=== PATIENT | male | born 1980 | race African-American/Black ===

== ENCOUNTER 2022-12-20 11:52 | Inpatient (IN) | payer OTHER, SELFPAY ==
--- NOTE | ~2022-12-20 | CT_ITS ---
EXAMINATION: CT CHEST, ABDOMEN AND PELVIS WITHOUT CONTRAST CLINICAL INFORMATION: Leukocytosis and pneumonia with left lower quadrant pain and question of diverticulitis/colitis COMPARISON: CT abdomen pelvis 01/31/2019 TECHNIQUE: Multidetector volumetric imaging was performed from the thoracic inlet through the pubic symphysis without IV contrast. Sagittal and coronal reformatted images were obtained on the technologist's workstation. This CT examination was performed using dose optimization techniques as appropriate, variously including the following: *Automated exposure control *Adjustment of mA and/or kV according to patient size (this includes techniques or standardized protocols for targeted exams where dose is matched to indication/reason for exam; i.e. extremities or head) *Use of iterative reconstruction technique DLP: 299 mGy-cm for the chest and 532 mGy-cm for the abdomen and pelvis FINDINGS: CHEST: Lung: Dense left lower lobe consolidation is present. Some mild atelectasis is present at the right lung base. Mediastinum: The mediastinum is normal. The central vascular structures are unremarkable. No hilar or mediastinal lymphadenopathy. Minimal coronary artery calcium is present. Pericardium/Pleura: No significant effusion. No pleural mass or thickening. Chest Wall/Axilla: Unremarkable ABDOMEN/PELVIS: Peritoneal Space: No significant free air or free fluid identified. Liver, Gallbladder, Biliary Tree: The liver is normal in size and shape but with decreased attenuation compared with the spleen consistent with hepatic steatosis. No focal hepatic lesion or biliary ductal dilatation is present. The gallbladder is contracted but otherwise unremarkable with no evidence of radiopaque gallstones, gallbladder wall thickening, or obvious pericholecystic inflammatory changes. Pancreas: Unremarkable Spleen: Unremarkable Adrenal Glands: Unremarkable Kidneys and Ureters: The kidneys are normal in size, shape, and attenuation. There is a punctate 2 mm calcification seen in the right lower pole. No hydronephrosis, hydroureter, or additional calculi seen. No perinephric stranding. Bladder: Unremarkable Gastrointestinal Tract: The small and large bowel are unremarkable. The appendix is unremarkable. Abdominal Wall: No significant hernia is appreciated. Lymph Nodes: No lymphadenopathy. Vascular: Calcific atherosclerotic plaque present in the aorta and iliac vessels without aneurysm. The IVC appears unremarkable. PELVIC VISCERA: Unremarkable OSSEUS STRUCTURES: Mild degenerative changes are noted in the spine. No bony destructive lesions are seen. CT/CT abdomen pelvis wo IV con IMPRESSION: 1. Dense left lower lobe consolidation consistent with pneumonia. 2. Hepatic steatosis. 3. Punctate nonobstructing right renal calculus. 4. No evidence of diverticulitis or colitis. 5. Other incidental findings as described above. Fleischner guidelines were followed.
[2022-12-20 12:03] VITALS: BP 149/87; PULSE 130; RESP 17; TEMP 37.6; O2SAT 94; BMI 30.4
--- NOTE | 2022-12-20 12:04 | ED_ITS ---
HPI - General Adult General Chief complaint: Abdominal Pain Stated complaint: covid symptons Time Seen by Provider: 12/20/22 12:04 Source: patient Mode of arrival: ambulatory Limitations: no limitations History of Present Illness HPI narrative: Patient was has a complaint of diffuse abdominal pain nausea vomiting diarrhea for last 4 days with fever and chills multiple times of vomiting and diarrhea get worse on taking any p.o. fluids . Abdominal pain gets worse when patient ambulates and eat pain got worse today on arrival patient had temperature of 103.3 degrees with tachycardia no upper respiratory symptoms no other family member sick no recent travel no history of similar pain and symptoms before patient also have dry cough for last few days Related Data Allergies Allergy/AdvReac Type Severity Reaction Status Date / Time No Known Allergies Allergy Verified 12/20/22 12:02 [No Known Allergies*] Review of Systems 2 Review of Systems: Yes all other systems are reviewed and are negative [facility] Social History Social History Alcohol intake: current Alcohol intake frequency: holidays/special occasions only Patient Tobacco Use Status: Never used Tobacco Smoked in Last 30 Days: Yes Use of substances other than those prescribed or required for medical reasons: Yes Substance Use Type: Marijuana Advance Directives: No Advance Directives Information Provided: Yes Nutrition Risks: No Nutritional Risk Physical Exam ED Vital Signs: Vital Signs - 24 hr 12/20/22 12:03 12/20/22 16:40 12/20/22 17:30 Temperature 99.7 F 103.3 F H 100.6 F H Pulse Rate 130 H 123 H 128 H Respiratory Rate 17 18 24 H Blood Pressure 149/87 H 165/98 H 156/93 H Pulse Oximetry 94 96 95 Oxygen Delivery Method Room Air Room Air 12/20/22 18:18 12/20/22 18:56 12/20/22 19:33 Temperature 100.3 F 99.7 F 98.7 F Pulse Rate 108 H 103 H 101 H Respiratory Rate 21 H 18 25 H Blood Pressure 153/96 H 129/86 Pulse Oximetry 96 95 97 Oxygen Delivery Method Room Air Room Air Room Air BMI result Body Mass Index 30.4 Appearance: Alert. Oriented X3. Looks sick Eyes: PERRLA, No Nystagmus ENT: Pharynx normal. Oral Mucosa moist Neck: Normal inspection. Neck supple. CVS: Normal heart rate and rhythm. Pulses normal. Respiratory: No respiratory distress. Equal air entry bilateral, no wheezing/rales/rhonchi pleuritic pain on the left side with few rales at left base Abdomen: Soft diffuse lower abdominal tenderness both lower quadrants L>R with guarding no rebound and Bowel sounds are present, no mass palpable, no CVA tenderness Skin: Skin warm and dry. Normal skin color. Normal skin turgor. Extremities: No lower extremity edema. No calf tenderness Neuro: Oriented X 3. No motor deficit. Course Course Course Narrative: This is an RME: Additional HPI, ROS, PE not included below will be deferred to primary provider. 42 YO M presents w/ n/v/d, abd pain and body aches and pains X3 days. No sick contacts Plan- viral test Medications Administered Generic Name Dose Route Start Last Admin Trade Name Freq PRN Reason Stop Dose Admin Ceftriaxone Sodium 1 gm/ 50 mls @ 100 mls/hr 12/20/22 22:00 12/20/22 22:21 Sodium Chloride IV Infused Q24H KOBY Infusion Azithromycin 500 mg/ Sodium 250 mls @ 125 mls/hr 12/20/22 21:00 12/21/22 00:21 Chloride IV Infused Q24H KOBY Infusion Discontinued Medications Generic Name Dose Route Start Last Admin Trade Name Freq PRN Reason Stop Dose Admin Acetaminophen 975 mg 12/20/22 16:46 12/20/22 16:50 Acetaminophen 325 Mg Tablet PO 12/20/22 16:47 975 mg ONCE ONE Administration Piperacillin Sod/Tazobactam 50 mls @ 100 mls/hr 12/20/22 17:13 12/20/22 18:07 Sod 3.375 gm/ Sodium Chloride IV 12/20/22 17:42 Infused ONCE ONE Infusion Sodium Chloride 2,500 mls @ 2,500 mls/hr 12/20/22 17:16 12/20/22 18:48 Ns IV 12/20/22 18:15 Infused .Q1H STA Infusion Potassium Chloride 10 meq in 100 mls @ 100 mls/hr 12/20/22 20:30 12/21/22 00:21 Potassium Chloride/H20 IV 12/21/22 00:29 100 mls/hr Q1H KOBY Administration Ondansetron HCl 4 mg 12/20/22 17:13 12/20/22 17:36 Ondansetron Hcl 4 Mg/2 Ml Vial IVPUSH 12/20/22 17:14 4 mg ONCE ONE Administration Medical Decision Making Medical Decision Making [facility] Narrative: Patient with nonspecific lower abdominal pain with nausea vomiting diarrhea CT scan negative for any acute abdominal pathology but showed left lower lobe consolidation patient does have a cough with leukocytosis will admit patient for community-acquired pneumonia with GI symptoms patient tachycardic with leukocytosis meeting the criteria for sepsis but not septic shock received IV fluids and antibiotic in the ER Differential Diagnosis Differential Diagnoses: The differential diagnosis associated with the presentation includes Diverticulitis/colitis/appendicitis/pneumonia/URI Consult Healthcare Provider Management of the patient was discussed with: Hospitalist Lab Data [facility] Lab Attestation statement: I reviewed the patient's lab results. 12/20/22 16:55 12/20/22 16:55 Labs: Lab Results 12/20/22 12/20/22 12/20/22 Range/Units 13:09 16:55 17:23 WBC 16.4 H (4.8-10.8) X10*3/uL RBC 5.01 (4.60-5.80) X10*6/uL Hgb 14.7 (14.0-18.0) g/dl Hct 43.0 (42.0-52.0) % MCV 85.8 (80.0-98.0) fL MCH 29.3 (27.0-33.0) pg MCHC 34.2 (31.0-36.0) g/dl RDW 13.1 (11.0-16.0) % Plt Count 95 L (160-400) X10*3/uL MPV 11.8 (9.4-12.4) fL Immature Gran % (Auto) Cancelled Neut % (Auto) Cancelled Lymph % (Auto) Cancelled [place] % (Auto) Cancelled Eos % (Auto) Cancelled Baso % (Auto) Cancelled Lymph # (Auto) Cancelled [place] # (Auto) Cancelled Eos # (Auto) Cancelled Baso # (Auto) Cancelled Abs Immat Gran (auto) Cancelled Absolute Neuts (auto) Cancelled Absolute Nucleated RBC 0.000 (0.0-0.012) X10*3/uL Nucleated RBC % (auto) 0.0 (0.0-0.2) /100WBC Neutrophils % (Manual) 89 H (45-73) % Band Neutrophils % 2 L (3-5) % Lymphocytes % (Manual) 4 L (20-40) % Monocytes % (Manual) 5 (2-11) % Abs Neuts (Manual) 14.9 H (2.0-8.3) X10*3/uL Lymphocytes # (Manual) 0.7 L (1.2-4.9) X10*3/uL Monocytes # (Manual) 0.8 (0.1-1.2) X10*3/uL Platelet Estimate DECREASED (NORMAL) Large Platelets PRESENT Plt Morphology Comment NORMAL RBC Morphology NORMAL Sodium 130 L (135-145) mmol/L Potassium 3.2 L (3.3-5.1) mmol/L Chloride 94 L (96-108) mmol/L Carbon Dioxide 19 L (22-29) mmol/L Anion Gap 20 (12-20) BUN 19 H (9-16) mg/dL Creatinine 1.89 H (0.5-1.4) mg/dL Estim Creat Clear Calc 48.2 Estimated GFR 39 Random Glucose 135 H (60-115) mg/dL Lactic Acid 1.1 (0.5-2.0) mmol/L Calcium 10.1 (8.4-10.2) mg/dL Magnesium 1.7 (1.6-2.6) mg/dL Total Bilirubin 0.7 (0.0-1.0) mg/dL AST 29 (5-37) U/L ALT 34 (0-40) U/L Alkaline Phosphatase 62 (39-117) U/L Total Protein 8.4 H (6.5-8.0) g/dL Albumin 4.3 (3.5-5.0) g/dL Lipase 21 (8-78) U/L COVID-19 ([place]) Negative (Negative) COVID-19 Clin Com See Note Influenza Type A ([place]) Negative (Negative) Influenza Type B ([place]) Negative (Negative) Influenza A & B Note See Note Radiology Impression Discussion of test interpretation with radiology: I have reviewed the radiologist's reading. Radiologist Impression: [address] [address] [address] Scan Report Signed Patient: Sky Eaton MR#: [id number] : 1980 Acct:[id number] Age/Sex: 42 / M ADM Date: 12/20/22 Loc: HO.ED Attending Dr: Ordering Physician: Bipin Coe MD Date of Service: 12/20/22 Procedure(s): CT chest wo IV con Accession Number(s): [id number] cc: Physician,None ; Bipin Coe MD~ EXAMINATION: CT CHEST, ABDOMEN AND PELVIS WITHOUT CONTRAST CLINICAL INFORMATION: Leukocytosis and pneumonia with left lower quadrant pain and question of diverticulitis/colitis COMPARISON: CT abdomen pelvis 01/31/2019 TECHNIQUE: Multidetector volumetric imaging was performed from the thoracic inlet through the pubic symphysis without IV contrast. Sagittal and coronal reformatted images were obtained on the technologist's workstation. This CT examination was performed using dose optimization techniques as appropriate, variously including the following: *Automated exposure control *Adjustment of mA and/or kV according to patient size (this includes techniques or standardized protocols for targeted exams where dose is matched to indication/reason for exam; i.e. extremities or head) *Use of iterative reconstruction technique DLP: 299 mGy-cm for the chest and 532 mGy-cm for the abdomen and pelvis FINDINGS: CHEST: Lung: Dense left lower lobe consolidation is present. Some mild atelectasis is present at the right lung base. Mediastinum: The mediastinum is normal. The central vascular structures are unremarkable. No hilar or mediastinal lymphadenopathy. Minimal coronary artery calcium is present. Pericardium/Pleura: No significant effusion. No pleural mass or thickening. Chest Wall/Axilla: Unremarkable ABDOMEN/PELVIS: Peritoneal Space: No significant free air or free fluid identified. Liver, Gallbladder, Biliary Tree: The liver is normal in size and shape but with decreased attenuation compared with the spleen consistent with hepatic steatosis. No focal hepatic lesion or biliary ductal dilatation is present. The gallbladder is contracted but otherwise unremarkable with no evidence of radiopaque gallstones, gallbladder wall thickening, or obvious pericholecystic inflammatory changes. Pancreas: Unremarkable Spleen: Unremarkable Adrenal Glands: Unremarkable Kidneys and Ureters: The kidneys are normal in size, shape, and attenuation. There is a punctate 2 mm calcification seen in the right lower pole. No hydronephrosis, hydroureter, or additional calculi seen. No perinephric stranding. Bladder: Unremarkable Gastrointestinal Tract: The small and large bowel are unremarkable. The appendix is unremarkable. Abdominal Wall: No significant hernia is appreciated. Lymph Nodes: No lymphadenopathy. Vascular: Calcific atherosclerotic plaque present in the aorta and iliac vessels without aneurysm. The IVC appears unremarkable. PELVIC VISCERA: Unremarkable OSSEUS STRUCTURES: Mild degenerative changes are noted in the spine. No bony destructive lesions are seen. CT/CT chest wo IV con IMPRESSION: 1. Dense left lower lobe consolidation consistent with pneumonia. 2. Hepatic steatosis. 3. Punctate nonobstructing right renal calculus. 4. No evidence of diverticulitis or colitis. 5. Other incidental findings as described above. Discharge Plan Discharge Clinical Impression: Pneumonia, Sepsis, BRYAN (acute kidney injury) Patient Disposition: Admitted As Inpatient
[2022-12-20 13:29] LABS: COVID-19 Test Negative (Negative); IDNOW Serial# 08D9AD1C
[2022-12-20 13:32] LABS: IDNOW Serial# 9DB6401D; Influenza A Negative (Negative); Influenza B2 Negative (Negative)
[2022-12-20 16:40] VITALS: BP 165/98; PULSE 123; RESP 18; TEMP 39.6; O2SAT 96
--- NOTE | 2022-12-20 16:47 | PC.NURSE ---
oral temp 103.3 - per ED provider Mariia Armenta, verbal order of 975mg of tylenol ordered PO by this RN.
[2022-12-20] MEDS: Acetaminophen 325 MG TABLET 975 MG PO (16:50)
--- NOTE | 2022-12-20 16:58 | PC.NURSE ---
a&ox3, vss aside from fever. medication administered per provider order. 20gIV placed in left AC w/o complications - labs drawn and sent to lab. pt c/o 10/01 RUQ abdominal pain. pt also states n/v/d/decreased PO intake since wednesday. p's partner bedside. respirations even and unlabored. call rocha placed within reach.
[2022-12-20 17:12] LABS: PLT CLUMP 1
[2022-12-20 17:13] LABS: Alanine Aminotransferase 34 U/L (0-40); Albumin Level 4.3 g/dL (3.5-5.0); Alkaline Phosphatase 62 U/L (39-117); Anion Gap 20 (12-20); Aspartate Amino Transferase 29 U/L (5-37); Bilirubin Total 0.7 mg/dL (0.0-1.0); Blood Urea Nitrogen 19 mg/dL (9-16); Calcium 10.1 mg/dL (8.4-10.2); Carbon Dioxide 19 mmol/L (22-29); Chloride 94 mmol/L (96-108); Creatinine Clr Calc Pharmacy 48.2; Estimated Glomerular Filt Rate 39; Glucose Random 135 mg/dL (60-115); Lipase 21 U/L (8-78); Magnesium 1.7 mg/dL (1.6-2.6); Potassium 3.2 mmol/L (3.3-5.1); Sodium 130 mmol/L (135-145); Total Protein 8.4 g/dL (6.5-8.0)
[2022-12-20 17:14] LABS: Hemoglobin 14.7 g/dl (14.0-18.0); Mean Corpuscular HGB Conc 34.2 g/dl (31.0-36.0); Mean Corpuscular Hemoglobin 29.3 pg (27.0-33.0); Mean Corpuscular Volume 85.8 fL (80.0-98.0); Mean Platelet Volume 11.8 fL (9.4-12.4); Platelet Count 95 X10*3/uL (160-400); Red Blood Count 5.01 X10*6/uL (4.60-5.80); Red Cell Distribution Width 13.1 % (11.0-16.0); WBC ABN SCTR FOR CBC 1; White Blood Count 16.4 X10*3/uL (4.8-10.8)
[2022-12-20 17:30] VITALS: BP 156/93; PULSE 128; RESP 24; TEMP 38.1; O2SAT 95
[2022-12-20] MEDS: ondansetron HCL 4 MG/2 ML VIAL IVPUSH (17:36)
[2022-12-20] MEDS: Piperacillin Sodium/Tazobactam 3.375 GM in 0.9 % Sodium Chloride 50 ML IV (17:36)
[2022-12-20 17:37] LABS: Band Neutrophils Percent 2 % (3-5); Large Platelet PRESENT; Lymphocytes Absolute Manual 0.7 X10*3/uL (1.2-4.9); Lymphocytes Percent Manual 4 % (20-40); Monocytes Absolute Manual 0.8 X10*3/uL (0.1-1.2); Monocytes Percent Manual 5 % (2-11); Neutrophils Absolute Manual 14.9 X10*3/uL (2.0-8.3); Neutrophils Percent Manual 89 % (45-73); Platelet Estimate DECREASED (NORMAL); Platelet Morphology Comment NORMAL; RBC Morphology NORMAL
--- NOTE | 2022-12-20 17:38 | PC.NURSE ---
labs drawn and sent to lab. medication administered per provider order. vs updated in worklist.
[2022-12-20 17:44] LABS: Lactic Acid 1.1 mmol/L (0.5-2.0)
[2022-12-20] MEDS: 0.9 % Sodium Chloride 2,500 ML 2500 ML IV (17:48)
[2022-12-20 18:18] VITALS: BP 153/96; PULSE 108; RESP 21; TEMP 37.9; O2SAT 96
[2022-12-20 18:56] VITALS: PULSE 103; RESP 18; TEMP 37.6; O2SAT 95
[2022-12-20 19:33] VITALS: BP 129/86; PULSE 101; RESP 25; TEMP 37.1; O2SAT 97
--- NOTE | 2022-12-20 20:24 | P.HPHOSP_ITS ---
History of Present Illness Date of Service: 12/20/22 Chief Complaint: Abdominal Pain This is a 42-year-old male with no pertinent past medical history and not on prescription medications who presents to the emergency department for evaluation of fever, chills and cough. Patient states the symptoms started 2 days prior to presentation. Did not eat or drink anything unusual. No similar symptoms in the past. Patient states cough started 2 days prior to presentation. It is productive, progressive and without any relieving factors. Has associated shivering. Does have associated abdominal discomfort, nausea and he has not been able to keep anything down due to the nausea and vomiting. Multiple episodes of nonbloody emesis and nonbloody diarrhea. Also has symptoms of gastroesophageal reflux disease. No change in abdominal discomfort with p.o. intake. No sick contacts. Pleuritic chest discomfort present. No palpitations, dyspnea, changes in urinary habits. In the emergency department, patient was found to be septic with elevated WBC count. Potassium found to be low and creatinine found to be elevated. Review of Systems 2 Constitutional: Constitutional: Reports chills and Reports fever(s) Respiratory: Respiratory: Reports cough Gastrointestinal: Gastrointestinal: Reports loose stools, Reports nausea and Reports vomiting Genitourinary: Genitourinary: Reports no additional male genitourinary complaints PMFSH Pertinent family history: No family history of early CAD Social History Alcohol intake: current Alcohol intake frequency: holidays/special occasions only Smoked in Last 30 Days: Yes Use of substances other than those prescribed or required for medical reasons: Yes Substance Use Type: Marijuana Advance Directives: No Advance Directives Information Provided: Yes Meds Allergies Allergy/AdvReac Type Severity Reaction Status Date / Time No Known Allergies Allergy Verified 12/20/22 12:02 [No Known Allergies*] Active Medications: Current Medications Potassium Chloride (Potassium Chloride/H20) 10 meq in 100 mls @ 100 mls/hr IV Q1H KOBY Stop: 12/21/22 00:29 Physical Exam 2 Vital Signs and Narrative: Vital Signs: Last Vital Signs Temp 98.7 F 12/20/22 19:33 Pulse 101 H 12/20/22 19:33 Resp 25 H 12/20/22 19:33 BP 129/86 12/20/22 19:33 Pulse Ox 97 12/20/22 19:33 O2 Del Method Room Air 12/20/22 19:33 BMI result Body Mass Index 30.4 Middle-aged male lying in bed in mild distress Neck supple, no JVD Tachycardic with regular rhythm, S1-S2 heard Left-sided crackles without wheezing Abdomen with no abdominal tenderness, no guarding, no rigidity Patient is awake, alert and oriented to self, place, time and person ; no focal motor deficit Psych: Normal mood No pedal edema Results Labs 12/20/22 16:55 12/20/22 16:55 Labs: Laboratory Results - last 24 hr 12/20/22 12/20/22 12/20/22 13:09 16:55 17:23 MCV 85.8 MCH 29.3 MCHC 34.2 RDW 13.1 Plt Count 95 L MPV 11.8 Immature Gran % (Auto) Cancelled Neut % (Auto) Cancelled Lymph % (Auto) Cancelled [place] % (Auto) Cancelled Eos % (Auto) Cancelled Baso % (Auto) Cancelled Lymph # (Auto) Cancelled [place] # (Auto) Cancelled Eos # (Auto) Cancelled Baso # (Auto) Cancelled Abs Immat Gran (auto) Cancelled Absolute Neuts (auto) Cancelled Absolute Nucleated RBC 0.000 Nucleated RBC % (auto) 0.0 Neutrophils % (Manual) 89 H Band Neutrophils % 2 L Lymphocytes % (Manual) 4 L Monocytes % (Manual) 5 Abs Neuts (Manual) 14.9 H Lymphocytes # (Manual) 0.7 L Monocytes # (Manual) 0.8 Platelet Estimate DECREASED Large Platelets PRESENT Plt Morphology Comment NORMAL RBC Morphology NORMAL Anion Gap 20 Estim Creat Clear Calc 48.2 Estimated GFR 39 Random Glucose 135 H Lactic Acid 1.1 Calcium 10.1 Magnesium 1.7 Total Bilirubin 0.7 AST 29 ALT 34 Alkaline Phosphatase 62 Total Protein 8.4 H Albumin 4.3 Lipase 21 COVID-19 ([place]) Negative COVID-19 Clin Com See Note Influenza Type A ([place]) Negative Influenza Type B ([place]) Negative Influenza A & B Note See Note Imaging Radiologist's Impressions: Impressions Abdomen/Pelvis CT 12/20/22 19:34 IMPRESSION: 1. Dense left lower lobe consolidation consistent with pneumonia. 2. Hepatic steatosis. 3. Punctate nonobstructing right renal calculus. 4. No evidence of diverticulitis or colitis. 5. Other incidental findings as described above. Fleischner guidelines were followed. Chest CT 12/20/22 19:34 IMPRESSION: 1. Dense left lower lobe consolidation consistent with pneumonia. 2. Hepatic steatosis. 3. Punctate nonobstructing right renal calculus. 4. No evidence of diverticulitis or colitis. 5. Other incidental findings as described above. Fleischner guidelines were followed. Assessment and Plan (1) Sepsis: Status: Acute (2) Pneumonia: Status: Acute (3) BRYAN (acute kidney injury): Status: Acute Plan This is a 42-year-old male with no pertinent past medical history and not on prescription medications who presents to the emergency department for evaluation of abdominal discomfort, nausea, vomiting and diarrhea. #. Sepsis due to left-sided community-acquired pneumonia : Resuscitated with IV crystalloids. Lactic acid and blood cultures obtained. Initiating empiric IV antibiotics for community-acquired pneumonia. Sputum culture, Legionella antigen and MRSA nasal screen pending #. Nausea/vomiting and diarrhea: ?Likely in the setting of above. GI panel pending #. Hypokalemia due to GI losses: Repleted #. Acute kidney injury stage I, likely prerenal: Monitor creatinine and urine output with crystalloid resuscitation. Avoid nephrotoxins #. Thrombocytopenia: Likely in the setting of infection. DVT prophylaxis: Mechanical. Defer Lovenox due to thrombocytopenia Admit as inpatient and will require two night minimum hospital stay for IV antibiotics Time Spent With Patient Time: Total time managing care of this patient today ____ minutes. Quality Stroke Does the patient have a stroke diagnosis?: No VTE Prior VTE?: No VTE Risk Level:: Medical - moderate - high VTE Device Contraindication: N/A - Device Ordered VTE Drug Contraindication: Treatment Not Indicated
[2022-12-20] MEDS: Potassium Chloride/H20 10 MEQ/100 ML PIGGYBACK 100 MEQ IV (20:57)
[2022-12-20] MEDS: Azithromycin 500 MG in 0.9 % Sodium Chloride 250 ML 125 MG IV (20:59)
--- NOTE | 2022-12-20 21:21 | PC.NURSE ---
assumed care of pt, pt calm and cooperative at this time
--- NOTE | 2022-12-20 21:22 | PC.NURSE ---
per previous nurse, pause on antibiotics due to no pumps available.
[2022-12-20] MEDS: cefTRIAXone sodium 1 GM in 0.9 % Sodium Chloride 50 ML IV (21:38)
--- NOTE | 2022-12-20 22:33 | PC.NURSE ---
delay in administration of potassium due to no pumps available
[2022-12-21] VITALS (8 sets, daily range): BP systolic 129–152; BP diastolic 77–94; PULSE 78–118; RESP 14–20; TEMP 36.6–39.7; O2SAT 96–98; BMI 32.5; BMI 31.3
[2022-12-21] MEDS: Potassium Chloride/H20 10 MEQ/100 ML PIGGYBACK 100 MEQ IV ×3 (00:21→04:31)
[2022-12-21 00:54] LABS: CDiff Gene PCR NEGATIVE (Negative)
[2022-12-21] MEDS: ondansetron HCL 4 MG/2 ML VIAL IVPUSH (03:05)
[2022-12-21] MEDS: Acetaminophen 1,000 MG/100 ML PIGGYBACK 400 MG IV (03:11)
[2022-12-21 05:44] LABS: MANUAL DIFF FLAG NO
[2022-12-21 05:57] LABS: Basophils Percent Auto 0.3 % (0-2); Eosinophils Absolute Auto 0.1 X10*3/uL (0.0-0.4); Eosinophils Percent Auto 0.7 % (0-4); Hematocrit 38.8 % (42.0-52.0); Hemoglobin 13.3 g/dl (14.0-18.0); Imm Gran Abs Auto 0.14 X10*3/uL (0.00-0.03); Lymphocytes Absolute Auto 0.8 X10*3/uL (1.2-4.9); Lymphocytes Percent Auto 5.6 % (20-40); Mean Corpuscular HGB Conc 34.3 g/dl (31.0-36.0); Mean Corpuscular Hemoglobin 29.8 pg (27.0-33.0); Mean Platelet Volume 12.6 fL (9.4-12.4); Monocytes Absolute Auto 0.8 X10*3/uL (0.1-1.2); Monocytes Percent Auto 5.7 % (2-11); Neutrophils Absolute Auto 12.3 x10*3/uL (2.0-8.3); Neutrophils Percent Auto 86.7 % (45-73); Red Blood Count 4.46 X10*6/uL (4.60-5.80); Red Cell Distribution Width 13.2 % (11.0-16.0); White Blood Count 14.1 X10*3/uL (4.8-10.8)
[2022-12-21 06:03] LABS: Platelet Count 72 X10*3/uL (160-400)
[2022-12-21 06:16] LABS: Anion Gap 17 (12-20); Blood Urea Nitrogen 17 mg/dL (9-16); Calcium 8.8 mg/dL (8.4-10.2); Carbon Dioxide 19 mmol/L (22-29); Chloride 99 mmol/L (96-108); Creatinine Clr Calc Pharmacy 61.9; Estimated Glomerular Filt Rate 50; Glucose Random 112 mg/dL (60-115); Potassium 3.2 mmol/L (3.3-5.1); Sodium 132 mmol/L (135-145)
--- NOTE | 2022-12-21 08:16 | P.PNIM_ITS ---
Subjective Subjective Date of Service: 12/21/22 Interval History: weakness Physical Exam 2 Vital Signs: Vital Signs: Last Vital Signs Temp 99.6 F 12/21/22 07:14 Pulse 107 H 12/21/22 07:14 Resp 20 12/21/22 07:14 BP 129/84 12/21/22 07:14 Pulse Ox 96 12/21/22 07:14 O2 Del Method Room Air 12/21/22 07:14 BMI result Body Mass Index 31.3 lethargic, oriented times 3, left lung dullness Objective Data Active Medications Acetaminophen (Acetaminophen 325 Mg Tablet) 650 mg PO Q6H PRN PRN Reason: Pain, Mild (Pain Scale 1-3) Acetaminophen (Acetaminophen Supp 650 Mg Supp.Rect) 650 mg PA Q6H PRN PRN Reason: Pain, Mild (Pain Scale 1-3) Ceftriaxone Sodium 1 gm/ (Sodium Chloride) 50 mls @ 100 mls/hr IV Q24H [facility] Last Infusion: 12/20/22 22:21 Dose: Infused Documented By: HOLLAND Azithromycin 500 mg/ Sodium (Chloride) 250 mls @ 125 mls/hr IV Q24H [facility] Last Infusion: 12/21/22 00:21 Dose: Infused Documented By: HOLLAND Melatonin (Melatonin 3 Mg Tablet) 6 mg PO BEDTIME PRN PRN Reason: Insomnia Ondansetron HCl (Ondansetron Hcl 4 Mg/2 Ml Vial) 4 mg IVPUSH Q8H PRN PRN Reason: Nausea and Vomiting Last Admin: 12/21/22 03:05 Dose: 4 mg Documented By: SHERI Sodium Chloride (0.9 % Sodium Chloride Flush 3 Ml Syringe) [facility] Last Admin: 12/21/22 02:58 Dose: Not Given Documented By: SHERI Non-Admin Reason: IV Running Labs 12/21/22 05:18 12/21/22 05:18 Labs: Laboratory Results - last 24 hr 12/20/22 12/20/22 12/20/22 13:09 16:55 17:23 MCV 85.8 MCH 29.3 MCHC 34.2 RDW 13.1 Plt Count 95 L MPV 11.8 Immature Gran % (Auto) Cancelled Neut % (Auto) Cancelled Lymph % (Auto) Cancelled Boyd % (Auto) Cancelled Eos % (Auto) Cancelled Baso % (Auto) Cancelled Lymph # (Auto) Cancelled Boyd # (Auto) Cancelled Eos # (Auto) Cancelled Baso # (Auto) Cancelled Abs Immat Gran (auto) Cancelled Absolute Neuts (auto) Cancelled Absolute Nucleated RBC 0.000 Nucleated RBC % (auto) 0.0 Neutrophils % (Manual) 89 H Band Neutrophils % 2 L Lymphocytes % (Manual) 4 L Monocytes % (Manual) 5 Abs Neuts (Manual) 14.9 H Lymphocytes # (Manual) 0.7 L Monocytes # (Manual) 0.8 Platelet Estimate DECREASED Large Platelets PRESENT Plt Morphology Comment NORMAL RBC Morphology NORMAL Anion Gap 20 Estim Creat Clear Calc 48.2 Estimated GFR 39 Random Glucose 135 H Lactic Acid 1.1 Calcium 10.1 Magnesium 1.7 Total Bilirubin 0.7 AST 29 ALT 34 Alkaline Phosphatase 62 Total Protein 8.4 H Albumin 4.3 Lipase 21 C. difficile Tox B Gene COVID-19 ([place]) Negative COVID-19 Clin Com See Note Influenza Type A ([place]) Negative Influenza Type B ([place] Negative Influenza A & B Note See Note 12/20/22 12/21/22 23:54 05:18 MCV 87.0 MCH 29.8 MCHC 34.3 RDW 13.2 Plt Count 72 L MPV 12.6 H Immature Gran % (Auto) 1.0 H Neut % (Auto) 86.7 H Lymph % (Auto) 5.6 L Boyd % (Auto) 5.7 Eos % (Auto) 0.7 Baso % (Auto) 0.3 Lymph # (Auto) 0.8 L Boyd # (Auto) 0.8 Eos # (Auto) 0.1 Baso # (Auto) 0.0 Abs Immat Gran (auto) 0.14 H Absolute Neuts (auto) 12.3 H Absolute Nucleated RBC 0.000 Nucleated RBC % (auto) 0.0 Neutrophils % (Manual) Band Neutrophils % Lymphocytes % (Manual) Monocytes % (Manual) Abs Neuts (Manual) Lymphocytes # (Manual) Monocytes # (Manual) Platelet Estimate Large Platelets Plt Morphology Comment RBC Morphology Anion Gap 17 Estim Creat Clear Calc 61.9 Estimated GFR 50 Random Glucose 112 Lactic Acid Calcium 8.8 D Magnesium Total Bilirubin AST ALT Alkaline Phosphatase Total Protein Albumin Lipase C. difficile Tox B Gene NEGATIVE COVID-19 ([place]) COVID-19 Clin Com Influenza Type A ([place]) Influenza Type B ([place]) Influenza A & B Note Assessment and Plan (1) Pneumonia: Status: Acute Plan 42M presented with abd pain, found to have sepsis from pna sepsis due to left lung pneumonia yamilex jaramillo, follow up cultures, pcr hepatic steatosis check hepatitis virla panel, hiv dvt prophylaxis - mechanical due to thrombocytopenia (due to liver disease and sepsis) full code reason for continued hospitalization:septic Time Spent With Patient Time: Total time managing care of this patient today ____ minutes. Quality Stroke Does the patient have a stroke diagnosis?: No VTE Prior VTE?: No VTE Risk Level:: Medical - moderate - high VTE Device Contraindication: N/A - Device Ordered VTE Drug Contraindication: Treatment Not Indicated
[2022-12-21 08:52] LABS: Adenovirus F 40/41 Not Detected (Not Detect.); Astrovirus Not Detected (Not Detect.); Campylobacter Not Detected (Not Detect.); Cryptosporidium Not Detected (Not Detect.); Cyclospora cayetanensis Not Detected (Not Detect.); E. coli EAEC Not Detected (Not Detect.); E. coli EPEC Detected (Not Detect.); E. coli ETEC Not Detected (Not Detect.); E. coli STEC Not Detected (Not Detect.); Entamoeba histolytica Not Detected (Not Detect.); Giardia lamblia Not Detected (Not Detect.); Norovirus GI/GII Not Detected (Not Detect.); Plesiomonas shigelloides Not Detected (Not Detect.); Rotavirus A Not Detected (Not Detect.); Salmonella Not Detected (Not Detect.); Sapovirus Not Detected (Not Detect.); Shigella sp./EIEC Not Detected (Not Detect.); Vibrio Not Detected (Not Detect.); Vibrio Cholerae Not Detected (Not Detect.); Yersinia enterocolitica Not Detected (Not Detect.)
[2022-12-21] MEDS: 0.9 % Sodium Chloride Flush 3 ML SYRINGE IVFLUSH ×3 (09:10→20:01)
[2022-12-21] MEDS: Acetaminophen 325 MG TABLET 650 MG PO ×2 (09:14→18:03)
[2022-12-21 09:15] LABS: MRSA Nasal PCR NEGATIVE (Negative); SA Nasal PCR NEGATIVE (Negative)
--- NOTE | 2022-12-21 10:30 | PHA.MEDREC ---
Pharmacy Consult ? Medication Reconciliation Pharmacy has completed the medication reconciliation.Spoke with patients . Patient is not on any medications. Patient has albuterol inhaler at home but has not used in some time.
[2022-12-21 11:16] LABS: HBS Num1 0.41 mIU/mL (0-7.99); HBc Num1 0.06 S/CO (0.00-0.79); HBsAGNum1 0.47 S/CO (0.00-0.99); HIV AB/AG Nonreactive (Nonreactive); HIV Num 1 0.05 S/CO (0.00-0.99); Hepatitis B Core Antibody Nonreactive (Nonreactive); Hepatitis B Surface Antigen Negative (Negative); ~HepC Num1 0.04 S/CO (0.00-0.79); ~Hepatitis B Surface Antibody NONREACTIVE (Nonreactive); ~Hepatitis C Antibody Nonreactive (Nonreactive)
[2022-12-21 11:38] LABS: Amphetamine Screen Urine Not Detected (Not Detect); Barbiturates, Urine Not Detected (Not Detect); Benzodiazepines Screen Urine Not Detected (Not Detect); Cannabinoid Screen Urine POSITIVE (Not Detect); Cocaine Screen Urine Not Detected (Not Detect); Fentanyl, urine Not Detected (Not Detect); Opiate Screen Urine Not Detected (Not Detect); Phencyclidine Screen Urine Not Detected (Not Detect)
[2022-12-21] MEDS: Potassium Chloride ER 20 MEQ TAB.ER.PRT 40 MEQ PO (12:54)
[2022-12-21] MEDS: Ibuprofen 400 MG TABLET PO (15:57)
--- NOTE | 2022-12-21 16:28 | MHC.CM.PN ---
PT AND REPORT PT LIVES AT HOME AND IS INDEPENDENT WITH CARE HE HAS NO DME AND NO SERVICES PT DOES NOT HAVE A PCP, TASK SENT TO [facility] [employer] [facility] HCP DCP: HOME NO SERVICES TO TRANSPORT
[2022-12-21 17:31] LABS: Adenovirus PCR Not Detected (Not Detect.); Bordetella parapertussis PCR Not Detected (Not Detect.); Bordetella pertussis PCR Not Detected (Not Detect.); Chlamydia pneumoniae PCR Not Detected (Not Detect.); Coronavirus 229E PCR Not Detected (Not Detect.); Coronavirus HKU1 PCR Not Detected (Not Detect.); Coronavirus NL63 PCR Not Detected (Not Detect.); Coronavirus OC43 PCR Not Detected (Not Detect.); Human metapneumovirus PCR Not Detected (Not Detect.); Influenza A PCR Not Detected (Not Detect.); Influenza B PCR Not Detected (Not Detect.); Mycoplasma pneumoniae PCR Not Detected (Not Detect.); Parainfluenza 1 PCR Not Detected (Not Detect.); Parainfluenza 2 PCR Not Detected (Not Detect.); Parainfluenza 3 PCR Not Detected (Not Detect.); Parainfluenza 4 PCR Not Detected (Not Detect.); RSV PCR Not Detected (Not Detect.); Rhino/Enterovirus PCR Not Detected (Not Detect.)
[2022-12-21 17:36] LABS: SARS-CoV-2 PCR Not Detected (Not Detect.)
[2022-12-21] MEDS: Azithromycin 500 MG in 0.9 % Sodium Chloride 250 ML 125 MG IV (19:59)
[2022-12-21] MEDS: cefTRIAXone sodium 1 GM in 0.9 % Sodium Chloride 50 ML IV (22:07)
[2022-12-22] MEDS: Melatonin 3 MG TABLET 6 MG PO (00:13)
[2022-12-22] MEDS: Acetaminophen 325 MG TABLET 650 MG PO ×4 (00:13→20:02)
[2022-12-22 02:37] VITALS: BP 131/91; PULSE 84; RESP 18; TEMP 36.4; O2SAT 98
[2022-12-22 05:49] LABS: PLT ABN DIST 1; WBC ABN SCTR FOR CBC 1
[2022-12-22 05:51] LABS: Hematocrit 38.2 % (42.0-52.0); Hemoglobin 13.2 g/dl (14.0-18.0); Mean Corpuscular HGB Conc 34.6 g/dl (31.0-36.0); Mean Corpuscular Hemoglobin 29.2 pg (27.0-33.0); Mean Corpuscular Volume 84.5 fL (80.0-98.0); Mean Platelet Volume 12.8 fL (9.4-12.4); Red Blood Count 4.52 X10*6/uL (4.60-5.80); Red Cell Distribution Width 13.2 % (11.0-16.0)
[2022-12-22 05:56] LABS: Platelet Count 73 X10*3/uL (160-400)
[2022-12-22 05:57] LABS: White Blood Count 10.6 X10*3/uL (4.8-10.8)
[2022-12-22 06:10] LABS: Alanine Aminotransferase 44 U/L (0-40); Albumin Level 3.4 g/dL (3.5-5.0); Alkaline Phosphatase 57 U/L (39-117); Anion Gap 16 (12-20); Aspartate Amino Transferase 46 U/L (5-37); Bilirubin Direct 0.2 mg/dL (0.0-0.5); Bilirubin Total 0.3 mg/dL (0.0-1.0); Blood Urea Nitrogen 17 mg/dL (9-16); Calcium 9.5 mg/dL (8.4-10.2); Carbon Dioxide 18 mmol/L (22-29); Chloride 103 mmol/L (96-108); Creatinine Clr Calc Pharmacy 68.4; Estimated Glomerular Filt Rate 58; Glucose Fasting 117 mg/dL (60-99); Potassium 3.4 mmol/L (3.3-5.1); Sodium 134 mmol/L (135-145); Total Protein 6.9 g/dL (6.5-8.0)
[2022-12-22 07:21] VITALS: BP 148/99; PULSE 105; RESP 18; TEMP 38.3; O2SAT 96
[2022-12-22] MEDS: 0.9 % Sodium Chloride Flush 3 ML SYRINGE IVFLUSH ×3 (07:25→23:24)
--- NOTE | 2022-12-22 10:53 | P.PNIM_ITS ---
Subjective Subjective Date of Service: 12/22/22 Interval History: still febrile, feeling lousy, nausea Physical Exam 2 Vital Signs: Vital Signs: Last Vital Signs Temp 100.9 F H 12/22/22 07:21 Pulse 105 H 12/22/22 07:21 Resp 18 12/22/22 07:21 BP 148/99 H 12/22/22 07:21 Pulse Ox 96 12/22/22 07:21 O2 Del Method Room Air 12/22/22 07:21 BMI result Body Mass Index 31.3 more alert, oriented times 3, left basilar dullness, Objective Data Active Medications Acetaminophen (Acetaminophen 325 Mg Tablet) 650 mg PO Q6H PRN PRN Reason: Pain, Mild (Pain Scale 1-3) Last Admin: 12/22/22 07:25 Dose: 650 mg Documented By: JUDY Acetaminophen (Acetaminophen Supp 650 Mg Supp.Rect) 650 mg MS Q6H PRN PRN Reason: Pain, Mild (Pain Scale 1-3) Ceftriaxone Sodium 1 gm/ (Sodium Chloride) 50 mls @ 100 mls/hr IV Q24H [facility] Last Infusion: 12/21/22 22:40 Dose: Infused Documented By: VINCE Azithromycin 500 mg/ Sodium (Chloride) 250 mls @ 125 mls/hr IV Q24H [facility] Last Infusion: 12/21/22 21:59 Dose: Infused Documented By: VINCE Melatonin (Melatonin 3 Mg Tablet) 6 mg PO BEDTIME PRN PRN Reason: Insomnia Last Admin: 12/22/22 00:13 Dose: 6 mg Documented By: VINCE Ondansetron HCl (Ondansetron Hcl 4 Mg/2 Ml Vial) 4 mg IVPUSH Q8H PRN PRN Reason: Nausea and Vomiting Last Admin: 12/21/22 03:05 Dose: 4 mg Documented By: SHERI Sodium Chloride (0.9 % Sodium Chloride Flush 3 Ml [facility]) [facility] Last Admin: 12/22/22 07:25 Dose: 3 ml Documented By: JUDY Labs 12/22/22 05:14 12/22/22 05:14 Labs: Laboratory Results - last 24 hr 12/21/22 12/21/22 12/21/22 08:17 10:54 13:36 MCV MCH MCHC RDW Plt Count MPV Absolute Nucleated RBC Nucleated RBC % (auto) Anion Gap Estim Creat Clear Calc Estimated GFR Fasting Glucose Calcium Total Bilirubin Direct Bilirubin AST ALT Alkaline Phosphatase Total Protein Albumin Urine Opiates Screen Not Detected Urine Fentanyl Screen Not Detected Ur Barbiturates Screen Not Detected Ur Phencyclidine Scrn Not Detected Ur Amphetamines Screen Not Detected U Benzodiazepines Scrn Not Detected Urine Cocaine Screen Not Detected U Marijuana (THC) Screen POSITIVE H Respiratory Panel [place] See Note Adenovirus (Rapid PCR) Not Detected B.pert (TEM-PCR) Not Detected B.parapertussis DNA PCR Not Detected C. pneumoniae DNA (PCR) Not Detected Coronavirus OC43 (PCR) Not Detected Coronavirus HKU1 (PCR) Not Detected Coronavirus 229E (PCR) Not Detected Coronavirus NL63 (PCR) Not Detected Hep Bs Antigen Negative Hep Bs Antibody NONREACTIVE Hep B Core Total Ab Nonreactive Hepatitis C Ab (EIA) Nonreactive HIV 1&2 Ab/P24 Ag 4thGn Nonreactive Human Metapneumovir PCR Not Detected Influenza A (RT-PCR) Not Detected Influenza B (RT-PCR) Not Detected M. pneumoniae (PCR) Not Detected Parainfluenza 1 (PCR) Not Detected Parainfluenza 2 (PCR) Not Detected Parainfluenza 3 (PCR) Not Detected Parainfluenza 4 (PCR) Not Detected RSV (PCR) Not Detected Entero/Rhino (PCR) Not Detected SARS-CoV-2 RNA (RT-PCR) Not Detected 12/22/22 05:14 MCV 84.5 MCH 29.2 MCHC 34.6 RDW 13.2 Plt Count 73 L MPV 12.8 H Absolute Nucleated RBC 0.000 Nucleated RBC % (auto) 0.0 Anion Gap 16 Estim Creat Clear Calc 68.4 Estimated GFR 58 Fasting Glucose 117 H Calcium 9.5 D Total Bilirubin 0.3 Direct Bilirubin 0.2 AST 46 H ALT 44 H Alkaline Phosphatase 57 Total Protein 6.9 Albumin 3.4 L Urine Opiates Screen Urine Fentanyl Screen Ur Barbiturates Screen Ur Phencyclidine Scrn Ur Amphetamines Screen U Benzodiazepines Scrn Urine Cocaine Screen U Marijuana (THC) Screen Respiratory Panel [place] Adenovirus (Rapid PCR) B.pert (TEM-PCR) B.parapertussis DNA PCR C. pneumoniae DNA (PCR) Coronavirus OC43 (PCR) Coronavirus HKU1 (PCR) Coronavirus 229E (PCR) Coronavirus NL63 (PCR) Hep Bs Antigen Hep Bs Antibody Hep B Core Total Ab Hepatitis C Ab (EIA) HIV 1&2 Ab/P24 Ag 4thGn Human Metapneumovir PCR Influenza A (RT-PCR) Influenza B (RT-PCR) M. pneumoniae (PCR) Parainfluenza 1 (PCR) Parainfluenza 2 (PCR) Parainfluenza 3 (PCR) Parainfluenza 4 (PCR) RSV (PCR) Entero/Rhino (PCR) SARS-CoV-2 RNA (RT-PCR) Microbiology Microbiology Results: Microbiology 12/20/22 17:29 Blood Culture - Preliminary Blood - Venous No growth after 24 hours. 12/20/22 17:23 Blood Culture - Preliminary Blood - Venous No growth after 24 hours. Assessment and Plan (1) Pneumonia: Status: Acute Plan 42M presented with abd pain, found to have sepsis from pna sepsis due to left lung pneumonia yamilex jaramillo, follow up cultures - negative to date, pcr negative, epec in stool continue to be febrile, ID eval hepatic steatosis negative hepatitis viral panel and hiv dvt prophylaxis - mechanical due to thrombocytopenia (due to liver disease and sepsis) full code reason for continued hospitalization:septic Time Spent With Patient Time: Total time managing care of this patient today ____ minutes. Quality Stroke Does the patient have a stroke diagnosis?: No VTE Prior VTE?: No VTE Risk Level:: Medical - moderate - high VTE Device Contraindication: N/A - Device Ordered VTE Drug Contraindication: Treatment Not Indicated
[2022-12-22 15:11] VITALS: BP 148/94; PULSE 108; RESP 20; TEMP 39.6; O2SAT 93
[2022-12-22] MEDS: vancomycin/NS 2,000 MG/500 ML PLAST..BAG 250 MG IV (15:49)
[2022-12-22 19:13] VITALS: BP 136/78; PULSE 104; RESP 19; TEMP 39.4; O2SAT 94
[2022-12-22] MEDS: ondansetron HCL 4 MG/2 ML VIAL IVPUSH (19:55)
[2022-12-22] MEDS: Azithromycin 500 MG in 0.9 % Sodium Chloride 250 ML 125 MG IV (19:58)
--- NOTE | 2022-12-22 20:08 | PC.NURSE ---
Assumed care of pt 19:15. Pt febrile on assuming care 102.9 po. Pt assessed, observed swaddled in 4+ blankets. Pt given sheet, blankets removed and ice placed in axilla, groin with education provided. Covering Dr. Haji notified of fever and pt report of black bowel movement twice today which pt states this is the first time he has notified staff about this. Written MD order to give tylenol early/ now and occult stool ordered. Pt c/o nausea, prn zofran given with +effect reported by pt. No other acute issues noted. Will continue to monitor.
[2022-12-22 22:05] LABS: OBS Int Ctl Valid YES; OBS1 NEGATIVE (NEGATIVE)
[2022-12-22 23:05] VITALS: BP 143/81; PULSE 98; RESP 18; TEMP 37.7; O2SAT 94
[2022-12-23] MEDS: cefTRIAXone sodium 1 GM in 0.9 % Sodium Chloride 50 ML IV ×2 (00:33→21:59)
[2022-12-23 03:55] VITALS: BP 137/83; PULSE 102; RESP 18; TEMP 37.3; O2SAT 96
[2022-12-23] MEDS: vancomycin HCL 1,000 MG in 0.9 % Sodium Chloride 250 ML 270 MG IV (06:17)
[2022-12-23] MEDS: Acetaminophen 325 MG TABLET 650 MG PO ×2 (06:17→19:57)
--- NOTE | 2022-12-23 06:33 | PC.NURSE ---
IV access lost mid-antibiotic infusion overnight. Antibiotics resumed on IV replacement. Continued as scheduled per pharmacy verbal order. Pt afebrile s/p tylenol administration in evening.
[2022-12-23 06:37] LABS: Hematocrit 35.1 % (42.0-52.0); Hemoglobin 12.2 g/dl (14.0-18.0); Mean Corpuscular HGB Conc 34.8 g/dl (31.0-36.0); Mean Corpuscular Hemoglobin 29.4 pg (27.0-33.0); Mean Corpuscular Volume 84.6 fL (80.0-98.0); Mean Platelet Volume 13.8 fL (9.4-12.4); Platelet Count 86 X10*3/uL (160-400); Red Blood Count 4.15 X10*6/uL (4.60-5.80); Red Cell Distribution Width 13.1 % (11.0-16.0); White Blood Count 8.5 X10*3/uL (4.8-10.8)
[2022-12-23 06:39] LABS: Anion Gap 15 (12-20); Blood Urea Nitrogen 13 mg/dL (9-16); Calcium 8.6 mg/dL (8.4-10.2); Carbon Dioxide 19 mmol/L (22-29); Chloride 98 mmol/L (96-108); Creatinine Clr Calc Pharmacy 73.9; Estimated Glomerular Filt Rate > 60; Glucose Fasting 100 mg/dL (60-99); Potassium 3.1 mmol/L (3.3-5.1); Sodium 129 mmol/L (135-145)
[2022-12-23 07:17] VITALS: BP 136/86; PULSE 89; RESP 18; TEMP 36; O2SAT 96
[2022-12-23] MEDS: Potassium Chloride ER 20 MEQ TAB.ER.PRT PO (09:11)
[2022-12-23] MEDS: 0.9 % Sodium Chloride Flush 3 ML SYRINGE IVFLUSH ×3 (09:13→19:58)
[2022-12-23 09:23] LABS: MRSA Nasal PCR NEGATIVE (Negative); SA Nasal PCR NEGATIVE (Negative)
--- NOTE | 2022-12-23 10:45 | P.PNIM_ITS ---
Subjective Subjective Date of Service: 12/23/22 Interval History: reporting LLQ pain with diarrhea tolerating diet weaned down O2 Low Na level Review of Systems Review of Systems: Yes all other systems are reviewed and are negative Physical Exam 2 Vital Signs: Vital Signs: Last Vital Signs Temp 96.8 F 12/23/22 07:17 Pulse 89 12/23/22 07:17 Resp 18 12/23/22 07:17 BP 136/86 12/23/22 07:17 Pulse Ox 96 12/23/22 07:17 O2 Del Method Room Air 12/23/22 07:17 BMI result Body Mass Index 31.3 Const: Other: Constitutional : Awake, interactive, not in distress Neck : Normal inspection, Supple Cardiovascular : RRR, no JVP, no lower extremity edema Respiratory : good bilateral air entry, no crackles, wheezes or rhonchi Gastrointestinal: soft, lax, Normal bowel sounds, LLQ tenderness with no surgical signs Skin : Warm, Dry Neurological : Alert & oriented x3, No focal deficit Objective Data Active Medications Acetaminophen (Acetaminophen 325 Mg Tablet) 650 mg PO Q6H PRN PRN Reason: Pain, Mild (Pain Scale 1-3) Last Admin: 12/23/22 06:17 Dose: 650 mg Documented By: PRAVEEN Ceftriaxone Sodium 1 gm/ (Sodium Chloride) 50 mls @ 100 mls/hr IV Q24H [facility] Last Infusion: 12/23/22 01:06 Dose: Infused Documented By: PRAVEEN Azithromycin 500 mg/ Sodium (Chloride) 250 mls @ 125 mls/hr IV Q24H [facility] Last Infusion: 12/22/22 23:53 Dose: Infused Documented By: PRAVEEN Melatonin (Melatonin 3 Mg Tablet) 6 mg PO BEDTIME PRN PRN Reason: Insomnia Last Admin: 12/22/22 00:13 Dose: 6 mg Documented By: VINCE Ondansetron HCl (Ondansetron Hcl 4 Mg/2 Ml Vial) 4 mg IVPUSH Q8H PRN PRN Reason: Nausea and Vomiting Last Admin: 12/22/22 19:55 Dose: 4 mg Documented By: PRAVEEN Sodium Chloride (0.9 % Sodium Chloride Flush 3 Ml Syringe) 3 ml IVFLUSH QSHIFT [facility] Last Admin: 12/23/22 09:13 Dose: 3 ml Documented By: TROY Labs 12/23/22 05:11 12/23/22 05:11 Labs: Laboratory Results - last 24 hr 12/22/22 12/22/22 12/23/22 18:10 21:49 05:11 MCV 84.6 MCH 29.4 MCHC 34.8 RDW 13.1 Plt Count 86 L MPV 13.8 H Absolute Nucleated RBC 0.000 Nucleated RBC % (auto) 0.0 Anion Gap 15 Estim Creat Clear Calc 73.9 Estimated GFR > 60 Fasting Glucose 100 H Calcium 8.6 D Nasal Screen MRSA (PCR) NEGATIVE Nasal S. aureus Screen NEGATIVE Nasal MRSA/S.aureus Interp SEE NOTE Stool Occult Blood NEGATIVE Microbiology Microbiology Results: Microbiology 12/22/22 18:10 Gram Stain - Final Sputum - Expectorated Sputum Culture - Preliminary Culture in progress. 12/20/22 17:29 Blood Culture - Preliminary Blood - Venous No growth after 48 hours. 12/20/22 17:23 Blood Culture - Preliminary Blood - Venous No growth after 48 hours. Assessment and Plan (1) BRYAN (acute kidney injury): Status: Acute (2) Sepsis: Status: Acute (3) Pneumonia: Status: Acute Plan 42M presented with abd pain, found to have sepsis from pna sepsis due to left lung pneumonia yamilex jaramillo, negative cultures pcr negative, epec in stool Pending ID eval LLQ abdominal pain w diarrhea check Cdiff hepatic steatosis negative hepatitis viral panel and hiv dvt prophylaxis - mechanical due to thrombocytopenia (due to liver disease and sepsis) full code reason for continued hospitalization: abd pain and diarrhea Quality Stroke Does the patient have a stroke diagnosis?: No VTE Prior VTE?: No VTE Risk Level:: Medical - moderate - high VTE Device Contraindication: N/A - Device Ordered VTE Drug Contraindication: Treatment Not Indicated
[2022-12-23 14:17] LABS: Anion Gap 14 (12-20); Blood Urea Nitrogen 13 mg/dL (9-16); Calcium 8.8 mg/dL (8.4-10.2); Carbon Dioxide 25 mmol/L (22-29); Chloride 98 mmol/L (96-108); Creatinine Clr Calc Pharmacy 75.7; Estimated Glomerular Filt Rate > 60; Glucose Random 124 mg/dL (60-115); Potassium 3.1 mmol/L (3.3-5.1); Sodium 134 mmol/L (135-145)
--- NOTE | 2022-12-23 15:04 | MHC.CM.PN ---
Per MD rounds patient is not medically cleared for discharge. He continues with diarrhea and abdominal pain. DP home self care. Patient will provide transportatation home.
[2022-12-23 15:45] VITALS: BP 139/70; PULSE 99; RESP 18; TEMP 36.8; O2SAT 97
[2022-12-23 16:47] LABS: Vancomycin Random 7.9 mcg/mL (15-20)
[2022-12-23] MEDS: Potassium Chloride ER 20 MEQ TAB.ER.PRT 40 MEQ PO (17:17)
[2022-12-23 19:57] VITALS: BP 142/88; PULSE 95; RESP 18; TEMP 37.2; O2SAT 96
[2022-12-23] MEDS: Azithromycin 500 MG in 0.9 % Sodium Chloride 250 ML 125 MG IV (19:57)
[2022-12-23] MEDS: Melatonin 3 MG TABLET 6 MG PO (19:57)
--- NOTE | 2022-12-23 23:35 | P.CNID_ITS ---
History of Present Illness Data of Consult Service Date: 12/22/22 Requesting physician: Barry Rod Primary Care Provider: None Physician HPI Reason for consult: cough/pneumonia He presents with weakness and fatigue and cough two days. He is HIV negative He was started on Zmax and Ceftriaxone MRSA is negative. Review of Systems 2 Review of Systems: Yes all other systems are reviewed and are negative [facility] Family History Family history: reviewed and not pertinent Social History Social History Household Members: Family Housing: House Do you presently have visiting nurse or other home services: No Alcohol intake: current Alcohol intake frequency: holidays/special occasions only Patient Tobacco Use Status: Never used Tobacco Substance Use Type: Marijuana service: No Meds Allergies Allergy/AdvReac Type Severity Reaction Status Date / Time No Known Allergies Allergy Verified 12/20/22 12:02 [No Known Allergies*] Active Medications: Current Medications Acetaminophen (Acetaminophen 325 Mg Tablet) 650 mg PO Q6H PRN PRN Reason: Pain, Mild (Pain Scale 1-3) Last Admin: 12/23/22 19:57 Dose: 650 mg Ceftriaxone Sodium 1 gm/ (Sodium Chloride) 50 mls @ 100 mls/hr IV Q24H [facility] Last Infusion: 12/23/22 22:29 Dose: Infused Azithromycin 500 mg/ Sodium (Chloride) 250 mls @ 125 mls/hr IV Q24H [facility] Last Infusion: 12/23/22 21:57 Dose: Infused Melatonin (Melatonin 3 Mg Tablet) 6 mg PO BEDTIME PRN PRN Reason: Insomnia Last Admin: 12/23/22 19:57 Dose: 6 mg Ondansetron HCl (Ondansetron Hcl 4 Mg/2 Ml Vial) 4 mg IVPUSH Q8H PRN PRN Reason: Nausea and Vomiting Last Admin: 12/22/22 19:55 Dose: 4 mg Sodium Chloride (0.9 % Sodium Chloride Flush 3 Ml Syringe) 3 ml IVFLUSH QSHIFT [facility] Last Admin: 12/23/22 19:58 Dose: 3 ml Home Medications Medication Instructions Recorded Confirmed Last Taken Type albuterol sulfate 90 mcg/actuation 2 puff inhalation Q4-6H PRN 12/21/22 12/21/22 Unknown History aerosol inhaler (Ventolin HFA) Shortness Of Breath Physical Exam 2 Vital Signs: Vital Signs: Last Vital Signs Temp 99 F 12/23/22 19:57 Pulse 95 12/23/22 19:57 Resp 18 12/23/22 19:57 BP 142/88 H 12/23/22 19:57 Pulse Ox 96 12/23/22 19:57 O2 Del Method Room Air 12/23/22 19:57 BMI result Body Mass Index 31.3 Const: General: cooperative HEENT: Head: Yes normal to inspection Face and sinus: Yes normal facial exam Mouth: Normal oral and palatal mucosa present Teeth and gingiva: d entition normal Eyes: General: appearance normal, both eyes and all related structures P upils: Equal, round and reactive pupils present Resp: Effort & Inspection: normal respiratory effort Cardio: Rate: regular rate Rhythm: regular rhythm GI: Palpation (GI): Soft to palpation and nontender : General: Yes no CVA tenderness Back/Spine/Pelvis: Back: no CVA tenderness Skin: General skin exam: no rashes or lesions noted Neuro: General: moves all extremities Cranial nerves: Yes Equal, round and reactive pupils present Extrem: General: Yes normal to inspection Psych: Appearance: grossly normal Results Labs 12/23/22 05:11 12/23/22 13:48 Labs: Short CBC 12/23/22 Range/Units 05:11 WBC 8.5 (4.8-10.8) X10*3/uL Hgb 12.2 L (14.0-18.0) g/dl Hct 35.1 L (42.0-52.0) % Plt Count 86 L (160-400) X10*3/uL BMP 12/23/22 12/23/22 05:11 13:48 Sodium 129 L 134 L Potassium 3.1 L 3.1 L Chloride 98 98 Carbon Dioxide 19 L 25 BUN 13 13 Creatinine 1.25 1.22 Calcium 8.6 D 8.8 Microbiology Microbiology Results: Microbiology 12/22/22 18:10 Sputum - Expectorated Gram Stain - Final 12/22/22 18:10 Sputum - Expectorated Sputum Culture - Preliminary Culture in progress. 12/20/22 17:29 Blood - Venous Blood Culture - Preliminary No growth after 48 hours. 12/20/22 17:23 Blood - Venous Blood Culture - Preliminary No growth after 48 hours. Assessment and Plan (1) Sepsis: Status: Acute (2) Pneumonia: Status: Acute He is feeling somewhat better. Likely community acquired pneumonia,strep pneumonia or atypical Plan Ceftriaxone and Azithromycin until off oxygen and moving around and then po Ceftin and Zmax Zpack for five days.
--- NOTE | 2022-12-23 23:35 | PC.NURSE ---
Assumed care 19:00. Pt continues on contact precautions, pending repeat cdiff rule out. Pt had BM just before 23:00, sample sent and processing. Handoff report given 23:00.
[2022-12-23 23:54] LABS: CDiff Gene PCR NEGATIVE (Negative)
[2022-12-24 04:00] VITALS: BP 126/71; PULSE 83; RESP 14; TEMP 37.4; O2SAT 96
[2022-12-24 06:32] LABS: Creatinine Clr Calc Pharmacy 99.4; Estimated Glomerular Filt Rate > 60
[2022-12-24 07:33] VITALS: BP 133/86; PULSE 79; RESP 18; TEMP 37.1; O2SAT 96
[2022-12-24] MEDS: 0.9 % Sodium Chloride Flush 3 ML SYRINGE IVFLUSH (07:46)
--- NOTE | 2022-12-24 12:11 | PM.DS ---
DS: Providers Provider Date of Service: 12/24/22 Date of admission: 12/20/22 20:23 Primary care physician: None Physician Consults: 12/22/22 09:11 Consult to Infectious Diseases Routine Consulting Provider: [facility] Infectious Disease Reason for consultation: Jazmine DS: Diagnosis Discharge Diagnosis (1) Sepsis: Status: Acute (2) Pneumonia: Status: Acute (3) BRYAN (acute kidney injury): Status: Acute (4) Hyponatremia: Status: Acute (5) Acute hypokalemia: Status: Acute DS: Summary Hospital Course Hospital Course: Admission note HPI This is a 42-year-old male with no pertinent past medical history and not on prescription medications who presents to the emergency department for evaluation of fever, chills and cough. Patient states the symptoms started 2 days prior to presentation. Did not eat or drink anything unusual. No similar symptoms in the past. Patient states cough started 2 days prior to presentation. It is productive, progressive and without any relieving factors. Has associated shivering. Does have associated abdominal discomfort, nausea and he has not been able to keep anything down due to the nausea and vomiting. Multiple episodes of nonbloody emesis and nonbloody diarrhea. Also has symptoms of gastroesophageal reflux disease. No change in abdominal discomfort with p.o. intake. No sick contacts. Pleuritic chest discomfort present. No palpitations, dyspnea, changes in urinary habits. In the emergency department, patient was found to be septic with elevated WBC count. Potassium found to be low and creatinine found to be elevated. Hospital course # sepsis due to left lung pneumonia Treated with rocephin, azithro with good response as negative cultures that has improved over the course of hospital stay. evaluated by ID who recommended 5 days of outpatient Azithromycin and Ceftin. # LLQ abdominal pain w diarrhea Tested negative for Cdiff. diarrhea resolved. # hepatic steatosis negative hepatitis viral panel and hiv. Likely from alcohol intake. advised to quit. Continue antibiotics as prescribed Use incentive spirometry at home We advise you complete abstinence from alcohol. Time Attestation Discharge coordination time: Greater than 30 minutes Quality: Safe Use of Opioids Does Pt have an Active Cancer Diagnosis on the Problem List?: No Quality: Stroke Does the patient have a stroke diagnosis?: No Physical Exam Vital Signs: Vital Signs: Last Vital Signs Temp 98.8 F 12/24/22 07:33 Pulse 79 12/24/22 07:33 Resp 18 12/24/22 07:33 BP 133/86 12/24/22 07:33 Pulse Ox 96 12/24/22 07:33 O2 Del Method Room Air 12/24/22 07:33 BMI result Body Mass Index 31.3 Const: Other: Constitutional : Awake, interactive, not in distress Neck : Normal inspection, Supple Cardiovascular : RRR, no JVP, no lower extremity edema Respiratory : good bilateral air entry, no crackles, wheezes or rhonchi Gastrointestinal: soft, lax, Normal bowel sounds, No tenderness Skin : Warm, Dry Neurological : Alert & oriented x3, No focal deficit DS: Data Data Completed and Pending Labs on day of discharge: Laboratory Results - last 24 hr 12/23/22 12/23/22 12/23/22 13:48 16:19 23:00 Sodium 134 L Potassium 3.1 L Chloride 98 Carbon Dioxide 25 Anion Gap 14 BUN 13 Creatinine 1.22 Estim Creat Clear Calc 75.7 Estimated GFR > 60 Random Glucose 124 H Calcium 8.8 Random Vancomycin 7.9 L C. difficile Tox B Gene NEGATIVE 12/24/22 05:32 Sodium Potassium Chloride Carbon Dioxide Anion Gap BUN Creatinine 0.93 Estim Creat Clear Calc 99.4 Estimated GFR > 60 Random Glucose Calcium Random Vancomycin C. difficile Tox B Gene Preliminary micro results at discharge 12/20/22 17:29 Blood Culture - Preliminary Blood - Venous No growth after 48 hours. 12/20/22 17:23 Blood Culture - Preliminary Blood - Venous No growth after 48 hours. Imaging Chest x-ray: Radiologist's impression: ITS Impressions Abdomen/Pelvis CT 12/20/22 19:34 IMPRESSION: 1. Dense left lower lobe consolidation consistent with pneumonia. 2. Hepatic steatosis. 3. Punctate nonobstructing right renal calculus. 4. No evidence of diverticulitis or colitis. 5. Other incidental findings as described above. Fleischner guidelines were followed. Chest CT 12/20/22 19:34 IMPRESSION: 1. Dense left lower lobe consolidation consistent with pneumonia. 2. Hepatic steatosis. 3. Punctate nonobstructing right renal calculus. 4. No evidence of diverticulitis or colitis. 5. Other incidental findings as described above. Fleischner guidelines were followed. Discharge Plan Discharge Anticipated Discharge Date/Time: 12/24/22 12:08 Patient Disposition: Home, Self-Care Discharge Diagnosis: Pneumonia kidney injury Referrals: Physician,None [Primary Care Provider] - 1 Week Discharge Medications: New azithromycin 500 mg tablet 500 mg PO DAILY 5 Days Qty: 5 0RF cefuroxime axetil 500 mg tablet 500 mg PO BID Qty: 10 0RF Continued albuterol sulfate [Ventolin HFA] 90 mcg/actuation HFA aerosol inhaler 2 puff inhalation Q4-6H PRN (Reason: Shortness Of Breath) Discharge Orders: Discharge Order (Routine); Ordered 12/24/22 Ordered By: Yessenia Morgan Diet: Advance to usual diet Activity on Discharge: As tolerated Stand Alone Forms: Patient Portal Discharge page Care Plan Goals: Read below Health Concerns: Read below Plan of Treatment: Read below Assessment: Continue antibiotics as prescribed Use incentive spirometry at home We advise you complete abstinence from alcohol.
--- NOTE | 2022-12-24 12:21 | MHC.CM.PN ---
PT WILL DC HOME TODAY WITH NO SERVICES VIA PRIVATE TRANSPORT
--- NOTE | 2022-12-24 15:19 | MHC.CM.PN ---
DP: PRIVATE TRANSPORT UNABLE TO ACCOMMODATE PT. LYFT RIDE ORDERED, PT CONTACT INFORMATION PROVIDED TO CHARLENE. CHARLENE CANCELLED RIDE X 3 DUE TO LACK OF DRIVERS. PT PROVIDED WITH BUS PASS.
== END 2022-12-24 14:24 | disposition home or self-care (01) | DRG 720 ==
LOC: HO.ED 17:06 → HO.EDOVER 20:34 → HO.S3 12-21 01:01
PROVIDERS: Internal Medicine; Physician Assistant; Admitting Provider Student in an Organized Health Care Education/Training Program; Emergency Provider Internal Medicine; Visit Provider Student in an Organized Health Care Education/Training Program
DX: A41.9 Sepsis, unspecified organism (principal); N17.9 Acute kidney failure, unspecified; J18.9 Pneumonia, unspecified organism; D69.59 Other secondary thrombocytopenia; E87.1 Hypo-osmolality and hyponatremia; E87.6 Hypokalemia; Z20.822 Contact with and (suspected) exposure to COVID-19
CPT/HCPCS: 36415; 71250; 74176; 80048; 80053; 80076; 80202; 80307; 82272; 82565; 83605; 83690; 83735; 85007; 85025; 85027; 86704; 86706; 86803; 87040; 87070; 87205; 87340; 87389; 87449; 87493; 87502; 87507; 87633; 87635; 87640; 87641; 99285; J0131; J0456; J0696; J2405; J2543; J3370

== ENCOUNTER → 2022-12-20 20:23 | Outpatient (BNV) | payer OTHER, SELFPAY | PROVIDERS: Admitting Provider Student in an Organized Health Care Education/Training Program; Emergency Provider Internal Medicine; Visit Provider Internal Medicine | DX: A41.9 Sepsis, unspecified organism (principal); J18.9 Pneumonia, unspecified organism | CPT/HCPCS: 99222 ==

== ENCOUNTER → 2022-12-20 20:23 | Outpatient (BNV) | payer OTHER, SELFPAY | PROVIDERS: Admitting Provider Student in an Organized Health Care Education/Training Program; Emergency Provider Internal Medicine; Visit Provider Student in an Organized Health Care Education/Training Program | DX: J18.9 Pneumonia, unspecified organism (principal) | CPT/HCPCS: 99222; 99232; 99233; 99239 ==

== ENCOUNTER 2023-01-18 03:28 | Emergency (ER) | payer OTHER, SELFPAY ==
--- NOTE | 2023-01-18 | ECG_ITS ---
Test Reason : CHEST PAIN Blood Pressure : / mmHG Vent. Rate : 098 BPM Atrial Rate : 098 BPM P-R Int : 230 ms QRS Dur : 094 ms QT Int : 352 ms P-R-T Axes : 069 -25 026 degrees QTc Int : 449 ms Sinus rhythm with 1st degree A-V block Possible Left atrial enlargement Left axis deviation Abnormal ECG No previous ECGs available Referred By: Generic ED Physician Electronically Signed By:ROSEANN THACKER MD
--- NOTE | ~2023-01-18 | XR_ITS ---
EXAMINATION: XR CHEST CLINICAL INFORMATION: Shortness of breath, chest pain COMPARISON: 12/20/2022 TECHNIQUE: Frontal view of the chest was obtained. FINDINGS: The lungs are hypoinflated. There is mild, partially streaky opacity at the left lung base, though overall left basilar aeration appears improved from prior. No right lung consolidation is seen. No evidence of pneumothorax, pleural effusion, or pulmonary edema. The cardiomediastinal contour is unremarkable. No acute osseous findings are seen. XR/XR chest 1V IMPRESSION: Interval improvement in left basilar aeration compared to prior. Mild, partially streaky left basilar opacity in this region may reflect residual consolidation versus atelectasis.
[2023-01-18 03:40] VITALS: BP 101/63; BP 155/103; PULSE 100; PULSE 106; RESP 20; TEMP 36.5; O2SAT 96; O2SAT 98; BMI 30.2
[2023-01-18 03:44] VITALS: PULSE 103; O2SAT 97
[2023-01-18 04:10] LABS: Basophils Percent Auto 0.4 % (0-2); Eosinophils Absolute Auto 0.1 X10*3/uL (0.0-0.4); Eosinophils Percent Auto 0.9 % (0-4); Hematocrit 40.7 % (42.0-52.0); Hemoglobin 13.2 g/dl (14.0-18.0); Imm Gran Abs Auto 0.02 X10*3/uL (0.00-0.03); Imm Gran Pct Auto 0.3 % (0.0-0.4); Lymphocytes Absolute Auto 2.4 X10*3/uL (1.2-4.9); Lymphocytes Percent Auto 35.7 % (20-40); Mean Corpuscular HGB Conc 32.4 g/dl (31.0-36.0); Mean Corpuscular Hemoglobin 29.1 pg (27.0-33.0); Mean Corpuscular Volume 89.8 fL (80.0-98.0); Mean Platelet Volume 9.4 fL (9.4-12.4); Monocytes Absolute Auto 0.4 X10*3/uL (0.1-1.2); Monocytes Percent Auto 5.9 % (2-11); Neutrophils Absolute Auto 3.9 x10*3/uL (2.0-8.3); Neutrophils Percent Auto 56.8 % (45-73); Platelet Count 163 X10*3/uL (160-400); Red Blood Count 4.53 X10*6/uL (4.60-5.80); White Blood Count 6.8 X10*3/uL (4.8-10.8)
[2023-01-18 04:11] LABS: MANUAL DIFF FLAG NO
[2023-01-18 04:25] LABS: Alanine Aminotransferase 18 U/L (0-40); Albumin Level 4.3 g/dL (3.5-5.0); Alkaline Phosphatase 79 U/L (39-117); Anion Gap 18 (12-20); Aspartate Amino Transferase 23 U/L (5-37); Bilirubin Total 0.5 mg/dL (0.0-1.0); Blood Urea Nitrogen 10 mg/dL (9-16); Carbon Dioxide 24 mmol/L (22-29); Chloride 106 mmol/L (96-108); Creatinine Clr Calc Pharmacy 90.8; Estimated Glomerular Filt Rate > 60; Glucose Random 90 mg/dL (60-115); Sodium 144 mmol/L (135-145); Total Protein 7.5 g/dL (6.5-8.0)
[2023-01-18 04:35] LABS: Troponin-I High Sensitivity < 2.7 ng/L (<3.5-35.0)
[2023-01-18 05:13] VITALS: BP 130/85; PULSE 95; RESP 16; TEMP 36.8; O2SAT 98
--- NOTE | 2023-01-18 05:25 | ED.SOB ---
HPI - SOB/Dyspnea General Chief Complaint: Dyspnea Stated Complaint: complaining of pneumonia Time Seen by Provider: 01/18/23 05:23 Source: patient Mode of arrival: EMS Limitations: no limitations History of Present Illness HPI Narrative: 42-year-old male was recently hospitalized from 12/20/2022 until 12/24/2022 for left lower lobe pneumonia sepsis treated with ceftriaxone azithromycin who presents emergency department for evaluation of chest tightness and cough x2 days. The patient was arrested today for a domestic dispute. The patient complained of chest tightness and cough was brought to emergency department for evaluation. Patient states that over the past 2 days he has had a cough which is productive of phlegm with blood in the sputum. He states that he has been having tightness in his chest which is worse with breathing and worse with coughing. He had several episodes of loose stools but denied shortness of breath, dyspnea on exertion, nausea or vomiting. Patient states he did not complete his full course of antibiotics. Related Data Home Medications Medication Instructions Recorded Confirmed albuterol sulfate 90 mcg/actuation 2 puff inhalation Q4-6H PRN 12/21/22 12/21/22 aerosol inhaler (Ventolin HFA) Shortness Of Breath Previous Rx's Medication Instructions Recorded azithromycin 500 mg tablet 500 mg PO DAILY 5 days #5 tabs 12/24/22 cefuroxime axetil 500 mg tablet 500 mg PO BID #10 tabs 12/24/22 Allergies Allergy/AdvReac Type Severity Reaction Status Date / Time No Known Allergies Allergy Verified 01/18/23 03:40 [No Known Allergies*] Review of Systems Review of Systems: Yes all other systems are reviewed and are negative [facility] Past Medical History [facility] Narrative: Past medical history: Left lower lobe consolidated pneumonia and sepsis hospitalized from 12/20/2022 until 12/24/2022. Social history: Patient does smoke cigarettes, he does drink alcohol, denies drug use. Social History Household Members: Family Housing: House Do you presently have visiting nurse or other home services: No Alcohol intake: current Alcohol intake frequency: holidays/special occasions only Patient Tobacco Use Status: Never used Tobacco Substance Use Type: Marijuana Advance Directives: No service: No Physical Exam Vital Signs: Vital Signs: Last Vital Signs Temp 98.2 F 01/18/23 05:13 Pulse 95 01/18/23 05:13 Resp 16 01/18/23 05:13 BP 130/85 01/18/23 05:13 Pulse Ox 98 01/18/23 05:13 O2 Del Method Room Air 01/18/23 05:13 BMI result Body Mass Index 30.2 Vital signs were no Exam General: Awake, alert in no distress Head: Normocephalic, atraumatic EENT: 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, right pupil is 4 mm, reactive to light, Lids normal, sclera normal, conjunctiva normal, nose normal , ears normal, throat without erythema or exudates Neck: Supple, no adenopathy, no trachea midline or C-spine tenderness Lung: breath sounds symmetric, no wheezing, rales or rhonchi Chest: symmetric movement, patient has tenderness palpation of the left costochondral joint Heart: regular rate and rhythm, normal S1, S2 no murmurs or rubs Abdomen: soft, non-tender, nondistended, normal bowel sounds Back: no vertebral tenderness, no CVAT Extremities: no deformities, moves all extremities symmetrically Neuro: Awake, alert, oriented, normal speech, moves all extremities symmetrically Psych: Pleasant, cooperative Medical Decision Making Medical Decision Making MDM Narrative: 42-year-old male recently hospitalized from 12/20/2022 until 12/24/2022 with left lower lobe consolidated pneumonia and sepsis who was arrested today for domestic dispute and was brought to emergency department for evaluation of chest pain and cough x2 days. Patient's vital signs were normal. Exam was normal including normal lung exam. Following evaluation was ordered: CBC, CMP, troponin, chest x-ray one view, 12 EKG 05:47 My interpretation of the patient's laboratory evaluation is as follows: WBC was normal. CMP was normal. High sensitive troponin I was below detectable limits. Chest x-ray revealed left basilar atelectasis /infiltrate however significantly improved compared to the consolidated pneumonia on CT scan from 12/20/2022. Given the patient's presentation, symptoms, normal laboratory evaluation and relatively unremarkable chest x-ray I believe that the patient's pneumonia has resolved and I do not think that his symptoms today are consistent with pneumonia Patient's chest pain is more consistent with costochondritis. Patient was treated with ibuprofen 600 mg orally. At this time, I think that the patient is medically cleared for incarceration therefore he will be discharged in police custody. He was given verbal instructions. Printed instructions were given to chief development officer Differential Diagnosis Differential Diagnoses: The differential diagnosis associated with the presentation includes Differential diagnosis includes but is not limited to pneumonia, bronchitis, costochondritis, myocardial infarction, myocardial ischemia, electrolyte abnormalities, anemia Admission/Observation Consideration of admission/observation: Escalation of care including admission/observation considered Lab Data 01/18/23 04:06 01/18/23 04:06 Labs: Lab Results 01/18/23 Range/Units 04:06 WBC 6.8 (4.8-10.8) X10*3/uL RBC 4.53 L (4.60-5.80) X10*6/uL Hgb 13.2 L (14.0-18.0) g/dl Hct 40.7 L (42.0-52.0) % MCV 89.8 (80.0-98.0) fL MCH 29.1 (27.0-33.0) pg MCHC 32.4 (31.0-36.0) g/dl RDW 15.0 (11.0-16.0) % Plt Count 163 D (160-400) X10*3/uL MPV 9.4 (9.4-12.4) fL Immature Gran % (Auto) 0.3 (0.0-0.4) % Neut % (Auto) 56.8 (45-73) % Lymph % (Auto) 35.7 (20-40) % [place] % (Auto) 5.9 (2-11) % Eos % (Auto) 0.9 (0-4) % Baso % (Auto) 0.4 (0-2) % Lymph # (Auto) 2.4 (1.2-4.9) X10*3/uL [place] # (Auto) 0.4 (0.1-1.2) X10*3/uL Eos # (Auto) 0.1 (0.0-0.4) X10*3/uL Baso # (Auto) 0.0 (0.0-0.2) X10*3/uL Abs Immat Gran (auto) 0.02 (0.00-0.03) X10*3/uL Absolute Neuts (auto) 3.9 (2.0-8.3) x10*3/uL Absolute Nucleated RBC 0.000 (0.0-0.012) X10*3/uL Nucleated RBC % (auto) 0.0 (0.0-0.2) /100WBC Sodium 144 (135-145) mmol/L Potassium 4.0 D (3.3-5.1) mmol/L Chloride 106 (96-108) mmol/L Carbon Dioxide 24 (22-29) mmol/L Anion Gap 18 (12-20) BUN 10 (9-16) mg/dL Creatinine 1.00 (0.5-1.4) mg/dL Estim Creat Clear Calc 90.8 Estimated GFR > 60 Random Glucose 90 (60-115) mg/dL Calcium 9.0 (8.4-10.2) mg/dL Total Bilirubin 0.5 (0.0-1.0) mg/dL AST 23 (5-37) U/L ALT 18 (0-40) U/L Alkaline Phosphatase 79 (39-117) U/L Troponin I High Sens < 2.7 (<3.5-35.0) ng/L Total Protein 7.5 (6.5-8.0) g/dL Albumin 4.3 (3.5-5.0) g/dL Radiology Impression Discussion of test interpretation with radiology: I have reviewed the radiologist's reading. Radiologist Impression: EXAMINATION: XR CHEST CLINICAL INFORMATION: Shortness of breath, chest pain COMPARISON: 12/20/2022 TECHNIQUE: Frontal view of the chest was obtained. FINDINGS: The lungs are hypoinflated. There is mild, partially streaky opacity at the left lung base, though overall left basilar aeration appears improved from prior. No right lung consolidation is seen. No evidence of pneumothorax, pleural effusion, or pulmonary edema. The cardiomediastinal contour is unremarkable. No acute osseous findings are seen. XR/XR chest 1V IMPRESSION: Interval improvement in left basilar aeration compared to prior. Mild, partially streaky left basilar opacity in this region may reflect residual consolidation versus atelectasis. Dictated By: Caleb Roe MD External Record Review External record reviewed: Inpatient record Social Determinants Patient?s care significantly limited by Social Determinants of Health including: Other Social Determinant of Health (Patient is in police custody) Discharge Plan Discharge Clinical Impression: Acute costochondritis, In police custody Patient Disposition: Home, Self-Care Instructions: Chest Pain (ED) Additional Instructions: Your blood work was normal, your kidney function is back to normal which is reassuring Your chest x-ray revealed no evidence for pneumonia, compared to your CT scan that you had when your here in the hospital with pneumonia your lungs have significantly improved which is also reassuring. At this time, I suspect that your pain is due to inflammation of the joints of your chest. Your treated with ibuprofen 600 mg orally. Take ibuprofen 200 mg pills, 2 pills every 6 hours as needed for pain or fever. Take Tylenol (acetaminophen) 500 mg pills, 2 pills every 6 hours as needed for pain or fever. Follow-up with your doctor in 2 days. Please return to the emergency department if your symptoms get worse or if you develop any symptoms that are concerning to you. You are medically cleared for incarceration Prescriptions: No Action albuterol sulfate [Ventolin HFA] 90 mcg/actuation HFA aerosol inhaler 2 puff inhalation Q4-6H PRN (Reason: Shortness Of Breath) azithromycin 500 mg tablet 500 mg PO DAILY 5 Days Qty: 5 0RF cefuroxime axetil 500 mg tablet 500 mg PO BID Qty: 10 0RF Interventions: ED Discharge Assessment Last Done: 01/18/23 05:47
[2023-01-18] MEDS: Ibuprofen 600 MG TABLET PO (05:43)
== END 2023-01-18 06:03 | disposition home or self-care (01) ==
PROVIDERS: Emergency Provider Emergency Medicine Emergency Medical Services
DX: M94.0 Chondrocostal junction syndrome [Tietze] (principal); R06.02 Shortness of breath
CPT/HCPCS: 36415; 71045; 80053; 84484; 85025; 93005; 99283; 99285

== ENCOUNTER 2023-02-28 00:16 | Emergency (ER) | payer OTHER, SELFPAY ==
[2023-02-28 00:29] VITALS: BP 155/112; BP 169/93; PULSE 86; PULSE 96; RESP 20; TEMP 36.9; O2SAT 98; O2SAT 99; BMI 34.9
--- NOTE | 2023-02-28 00:43 | ED.GENADULT ---
HPI - General Adult General Chief complaint: General Medical Stated complaint: SOB Time Seen by Provider: 02/28/23 00:36 Source: patient and EMS Mode of arrival: EMS Limitations: no limitations History of Present Illness HPI narrative: A 42-year-old male came in by ambulance for evaluation of shortness of breath, left side chest pain that lasted for about 3 minutes after he was walking in the street in the cold snowing whether. Patient stated that all his symptoms resolved in the hospital, history of pneumonia, no flu-like symptoms currently. Patient stated that he is normally physically fit exercise at home daily with no exertional chest pain or shortness of breath. No known history of asthma or COPD. Related Data Home Medications Medication Instructions Recorded Confirmed albuterol sulfate 90 mcg/actuation 2 puff inhalation Q4-6H PRN 12/21/22 12/21/22 aerosol inhaler (Ventolin HFA) Shortness Of Breath Previous Rx's Medication Instructions Recorded azithromycin 500 mg tablet 500 mg PO DAILY 5 days #5 tabs 12/24/22 cefuroxime axetil 500 mg tablet 500 mg PO BID #10 tabs 12/24/22 Allergies Allergy/AdvReac Type Severity Reaction Status Date / Time No Known Allergies Allergy Verified 02/28/23 00:29 [No Known Allergies*] Review of Systems Review of Systems: All other systems are reviewed and are negative Constitutional: Reports as per HPI and Reports no additional constitutional complaints Eyes: Reports as per HPI and Reports no additional eye complaints Reports system reviewed and no additional complaints, except as documented Cardiovascular: Reports as per HPI and Reports no additional cardiovascular complaints Respiratory: Reports as per HPI and Reports no additional respiratory complaints Gastrointestinal: Reports as per HPI and Reports no additional gastrointestinal complaints Genitourinary: Reports no additional female genitourinary complaints Musculoskeletal: Reports no additional musculoskeletal complaints Skin/Breast: Reports system reviewed and no additional complaints, except as docu Psychiatric: Reports no additional psychiatric complaints Endocrine: Reports no additional endocrine complaints Hematologic/Lymphatic: Reports no additional hematologic/lymphatic complaints Allergic/Immunologic: Reports no additional allergic/immunologic complaints Reports system reviewed and no additional complaints, except as documented and Reports Abnormal speech present [facility] Social History Social History Household Members: Family Housing: House Do you presently have visiting nurse or other home services: No Alcohol intake: current Alcohol intake frequency: holidays/special occasions only Patient Tobacco Use Status: Never used Tobacco Smoked in Last 30 Days: Yes Use of substances other than those prescribed or required for medical reasons: No Substance Use Type: Marijuana Advance Directives: No Advance Directives Information Provided: No service: No Physical Exam ED Vital Signs: Vital Signs - 24 hr 02/28/23 00:29 02/28/23 06:13 Temperature 98.4 F 98.4 F Pulse Rate 86 115 H Respiratory Rate 20 16 Blood Pressure 169/93 H 148/100 H Pulse Oximetry 98 96 Oxygen Delivery Method Room Air Room Air BMI result Body Mass Index 34.9 Vital signs have been reviewed and appear to be correct. Blood pressure elevated. Heart rate normal. Respiratory rate normal. Temperature normal. Oxygen saturation normal. Appearance: Alert. Oriented X3. No acute distress. Head: Normal external exam. Normocephalic. Atraumatic. No Wu signs noted. No raccoon eyes noted Eyes: PERRLA. EOMI. Conjunctiva and sclera normal. Eyelids normal. ENT: TM's Normal. Pharynx normal. Uvula midline. Moist mucous membranes. No trismus noted. No drooling noted. No muffled voice noted. Neck: Normal inspection. Neck supple. FROM. No adenopathy. Thyroid Normal. No meningeal signs. No neck mass noted. CVS: Normal heart rate and rhythm. Heart sound normal. No murmurs noted. Pulses normal throughout. Respiratory: No respiratory distress. Painless inspiration. Breath sounds normal. No wheezes/rales/rhonchi noted. Chest nontender. No accessory muscle usage noted or decreased air movement noted. Abdomen: Soft and nontender. Bowel sounds normal in all 4 quadrants. No distention noted. No organomegaly noted. No visible injury noted. Back: No CVA tenderness. Full range of motion noted. Skin: Skin warm and dry. Normal skin color. Normal skin turgor. No rashes/lesions/lacerations noted. Extremities: No lower extremity edema. Extremities exhibit normal range of motion. Extremities nontender. Neuro: Oriented X 3. Cranial nerve exam: II-XII are grossly intact No motor deficit. No sensory deficit. Reflexes normal. Course Reevaluation(s) Reevaluation #1: came in for evaluation of chest pain and shortness of breath after walking outside in the cold and snow whether, patient has unremarkable finding on the workup today will reassure and discharge. Time: 06:30 Medical Decision Making Differential Diagnosis Differential Diagnoses: The differential diagnosis associated with the presentation includes ( ACS, pneumonia, pneumothorax, pleural effusion, viral upper respiratory infection.) Admission/Observation Consideration of admission/observation: Escalation of care including admission/observation considered Lab Data MDM Lab Attestation statement: I reviewed the patient's lab results. 02/28/23 01:26 02/28/23 01:26 Labs: Lab Results 02/28/23 02/28/23 Range/Units 01:26 05:50 WBC 7.6 (4.8-10.8) X10*3/uL RBC 4.32 L (4.60-5.80) X10*6/uL Hgb 12.7 L (14.0-18.0) g/dl Hct 38.9 L (42.0-52.0) % MCV 90.0 (80.0-98.0) fL MCH 29.4 (27.0-33.0) pg MCHC 32.6 (31.0-36.0) g/dl RDW 14.7 (11.0-16.0) % Plt Count 185 (160-400) X10*3/uL MPV 9.9 (9.4-12.4) fL Immature Gran % (Auto) 0.4 (0.0-0.4) % Neut % (Auto) 66.5 (45-73) % Lymph % (Auto) 24.9 (20-40) % [place] % (Auto) 6.3 (2-11) % Eos % (Auto) 1.4 (0-4) % Baso % (Auto) 0.5 (0-2) % Lymph # (Auto) 1.9 (1.2-4.9) X10*3/uL [place] # (Auto) 0.5 (0.1-1.2) X10*3/uL Eos # (Auto) 0.1 (0.0-0.4) X10*3/uL Baso # (Auto) 0.0 (0.0-0.2) X10*3/uL Abs Immat Gran (auto) 0.03 (0.00-0.03) X10*3/uL Absolute Neuts (auto) 5.0 (2.0-8.3) x10*3/uL Absolute Nucleated RBC 0.000 (0.0-0.012) X10*3/uL Nucleated RBC % (auto) 0.0 (0.0-0.2) /100WBC D-Dimer High Sensitivty < 150 NG/ML Sodium 139 (135-145) mmol/L Potassium 3.9 (3.3-5.1) mmol/L Chloride 104 (96-108) mmol/L Carbon Dioxide 25 (22-29) mmol/L Anion Gap 14 (12-20) BUN 13 (9-16) mg/dL Creatinine 0.98 (0.5-1.4) mg/dL Estim Creat Clear Calc 99.5 Estimated GFR > 60 Random Glucose 82 (60-115) mg/dL Calcium 9.1 (8.4-10.2) mg/dL Total Bilirubin 1.1 H (0.0-1.0) mg/dL Direct Bilirubin 0.4 (0.0-0.5) mg/dL AST 22 (5-37) U/L ALT 22 (0-40) U/L Alkaline Phosphatase 68 (39-117) U/L Troponin I High Sens < 2.7 < 2.7 (<3.5-35.0) ng/L B-Natriuretic Peptide < 10 (<100) pg/mL Total Protein 7.2 (6.5-8.0) g/dL Albumin 4.3 (3.5-5.0) g/dL Lipase 10 (8-78) U/L Specimen Comment DELAY Influenza Type A (PCR) NEGATIVE (Negative) Influenza Type B (PCR) NEGATIVE (Negative) RSV RNA Qual (PCR) NEGATIVE (Negative) SARS-CoV-2 RNA (RT-PCR) NEGATIVE (Negative) Independent Interpretation I performed an independent interpretation of an: Plain X-Ray (Low lung volumes. No acute cardiopulmonary process. ) Radiology Impression Discussion of test interpretation with radiology: I have reviewed the radiologist's reading. Discharge Plan Discharge Clinical Impression: Breath shortness Patient Disposition: Home, Self-Care Instructions: Shortness of Breath (ED) Prescriptions: No Action albuterol sulfate [Ventolin HFA] 90 mcg/actuation HFA aerosol inhaler 2 puff inhalation Q4-6H PRN (Reason: Shortness Of Breath) azithromycin 500 mg tablet 500 mg PO DAILY 5 Days Qty: 5 0RF cefuroxime axetil 500 mg tablet 500 mg PO BID Qty: 10 0RF
--- NOTE | 2023-02-28 00:50 | PC.NURSE ---
this rn assumed care of pt. pt biba from the street on the way to [facility] for a cigarette. pt reports onset of shortness of breath, chest pain, left shoulder pain and reports his left foot is cracked. pt left foot noted to have cracked dry skin. pt denies n/v/d. respirations even and unlabored, skin appropriate for ethnicity.
--- NOTE | 2023-02-28 05:46 | PC.NURSE ---
pt given urine cup at this time and requested sample, tech at bedside to draw repeat labs.
[2023-02-28 06:13] VITALS: BP 148/100; PULSE 115; RESP 16; TEMP 36.9; O2SAT 96
[2023-02-28 07:27] VITALS: BP 156/95; PULSE 93; RESP 16; O2SAT 98
== END 2023-02-28 07:41 | disposition home or self-care (01) ==
PROVIDERS: Emergency Provider Emergency Medicine
DX: R06.02 Shortness of breath (principal); R07.9 Chest pain, unspecified; Z11.52 Encounter for screening for COVID-19; Z20.828 Contact with and (suspected) exposure to other viral communicable diseases
CPT/HCPCS: 0241U; 36415; 71045; 80048; 80076; 83690; 83880; 84484; 85025; 85379; 93005; 99283; 99284

== ENCOUNTER → 2023-02-28 00:42 | Outpatient (BNV) | payer OTHER, SELFPAY | PROVIDERS: Emergency Provider Emergency Medicine; Visit Provider Internal Medicine Cardiovascular Disease | DX: I44.0 Atrioventricular block, first degree (principal) | CPT/HCPCS: 93010 ==

== ENCOUNTER 2023-02-28 11:18 | Emergency (ER) | payer OTHER, SELFPAY ==
[2023-02-28 11:25] VITALS: BP 148/101; PULSE 89; RESP 18; TEMP 36.9; O2SAT 98; BMI 34.9
--- NOTE | 2023-02-28 11:32 | ED.GENADULT ---
HPI - General Adult General Chief complaint: General Medical Stated complaint: Pain in leg Time Seen by Provider: 02/28/23 11:47 Source: patient, RN notes reviewed and old records reviewed Mode of arrival: ambulatory History of Present Illness HPI narrative: 42-year-old male with no significant past medical history presenting to the ED complaining of painful cracked skin to left heel x awhile. Denies known injury/trauma or fall, drainage from area, fever/chills. Patient was seen and treated in our ED earlier today for SOB/chest pain, had negative workup Related Data Home Medications Medication Instructions Recorded Confirmed albuterol sulfate 90 mcg/actuation 2 puff inhalation Q4-6H PRN 12/21/22 12/21/22 aerosol inhaler (Ventolin HFA) Shortness Of Breath Previous Rx's Medication Instructions Recorded azithromycin 500 mg tablet 500 mg PO DAILY 5 days #5 tabs 12/24/22 cefuroxime axetil 500 mg tablet 500 mg PO BID #10 tabs 12/24/22 Allergies Allergy/AdvReac Type Severity Reaction Status Date / Time No Known Allergies Allergy Verified 02/28/23 00:29 [No Known Allergies*] Review of Systems Review of Systems: Constitutional: No Fever, No Chills ENT/Mouth: No Ear Pain, No Nasal Congestion, No sore throat, No Rhinorrhea, No Swallowing Difficulty Cardiovascular: No Chest Pain, No SOB Respiratory: No Cough, No Sputum, No Wheezing Gastrointestinal: No Nausea, No Vomiting, No Abdominal pain Musculoskeletal: + joint pain, No Myalgias, No Joint Swelling Skin: +Skin Lesions, No rash Neuro: No Weakness, No Numbness, No Paresthesias Yes all other systems are reviewed and are negative Constitutional: Constitutional: Reports as per [facility] Past Medical History Attestation statement: The following information was validated with the patient. Source: old records reviewed Onset Date is defined in the Problem List Problems that require an onset date and time if occurred within 24 hrs of arrival to the ED Aortic Dissection and Rupture; Neurologic impairment; Cardiopulmonary Arrest; Endotracheal Intubation; Insertion or Replacement of Mechanical Circulatory Assist Device Social History Social History Household Members: Family Housing: House Do you presently have visiting nurse or other home services: No Alcohol intake: current Alcohol intake frequency: holidays/special occasions only Patient Tobacco Use Status: Never used Tobacco Substance Use Type: Marijuana Advance Directives: No Advance Directives Information Provided: Yes service: No Physical Exam ED Vital Signs: Vital Signs - 24 hr 02/28/23 11:25 Temperature 98.4 F Pulse Rate 89 Respiratory Rate 18 Blood Pressure 148/101 H Pulse Oximetry 98 Oxygen Delivery Method Room Air BMI result Body Mass Index 34.9 Const General: cooperative, healthy appearing and no acute distress Orientation/consciousness: patient oriented x3 Limitations: no limitations HENMT Head: Yes normal to inspection and Yes atraumatic Ears: hearing grossly normal bilaterally General nose exam: Normal external nose present Face and sinus: Yes normal facial exam Eyes General: appearance normal, both eyes and all related structures EOM: EOMs intact bilaterally Neck Neck: Yes normal visual inspection and Yes no meningeal signs Resp Effort & Inspection: normal respiratory effort and no respiratory distress Cardio Rate: regular rate Peripheral pulses: popliteal pulses present Skin Other: +cracked/dry skin to left heel with mild ttp. No erythema/warmth. No drainage/fluctuance or induration. No crepitus Neuro General: patient oriented x3, tone normal and no meningeal signs Cranial nerves: Yes CN's II-XII intact bilaterally Gait exam (Neuro): Normal gait present Extrem General: Yes normal to inspection Course Course Course Narrative: RME: 42 yold male presents to the ED for left heel pain for one year. Patient denies any trauma. Foot/leg negative for swelling, redness, ecchymosis, calf tenderness, hotness, or coldness. normal temperature in foot. positive for left heel tenderness and callus. negative for wounds on foot. motor, neuro, and vascular exam is intact. FOot xray ordered XR foot LT 2V IMPRESSION: Normal left foot. Results discussed with patient including worrisome signs and symptoms and strict return precautions, and when to return to the emergency department. They verbalized understanding and feel safe for discharge at this time. Medications Administered Discontinued Medications Generic Name Dose Route Start Last Admin Trade Name Freq PRN Reason Stop Dose Admin Acetaminophen 650 mg 02/28/23 12:08 02/28/23 12:16 Acetaminophen 325 Mg Tablet PO 02/28/23 12:09 650 mg ONCE ONE Administration Medical Decision Making Medical Decision Making MDM Narrative: 42-year-old male with no significant past medical history presenting to the ED complaining of painful cracked skin to left heel x awhile. On exam VSS, NAD, nontoxic appearing, PE as above c/w dry/cracked skin, no evidence of cellulitis/abscess. Unlikely fracture/sprain or osteomyelitis X-rays ordered in triage Please refer to course for remaining clinical decision making, interpretation of labs/imaging results, and discussions with consultants and/or family members. Differential Diagnosis Differential Diagnoses: The differential diagnosis associated with the presentation includes As above Independent Interpretation I performed an independent interpretation of an: Plain X-Ray Radiology Impression Discussion of test interpretation with radiology: I have reviewed the radiologist's reading. External Record Review External record reviewed: Inpatient record, Office record, Outpatient record, Prior outpatient labs, Prior outpatient radiology, Primary care record and Outside ED record Tests considered The following testing was considered but not selected: As above Prescription Management I considered prescription management with: Pain Medication Social Determinants Patient?s care significantly limited by Social Determinants of Health including: Inadequate housing, Low income, Alcoholism and drug addiction in family and Unemployment Discharge Plan Discharge Clinical Impression: Cracked skin on feet Patient Disposition: Home, Self-Care Additional Instructions: Use topical lotions/ointments on your feet to keep them moist Use skin file to file dry/ skin off Consider getting a pedicure if area begins to look infected or is red/has drainage return to the ED Prescriptions: No Action albuterol sulfate [Ventolin HFA] 90 mcg/actuation HFA aerosol inhaler 2 puff inhalation Q4-6H PRN (Reason: Shortness Of Breath) azithromycin 500 mg tablet 500 mg PO DAILY 5 Days Qty: 5 0RF cefuroxime axetil 500 mg tablet 500 mg PO BID Qty: 10 0RF Referrals: César Lowery MD [Physician] - Nicanor Lowery DPM [Physician] - Discharge Date/Time: 02/28/23 12:36
== END 2023-02-28 12:36 | disposition home or self-care (01) ==
PROVIDERS: Emergency Provider Emergency Medicine
DX: L98.8 Other specified disorders of the skin and subcutaneous tissue (principal); M79.672 Pain in left foot
CPT/HCPCS: 73620; 99282; 99283